=== PATIENT | female | born 1950 | race African-American/Black ===

== ENCOUNTER 2017-03-19 23:52 | Emergency (ER) | payer OTHER ==
[~2017-03-19 23:52] MED LIST: ALBU1AER9 INH; AMLO10TA2 PO; B-COTAB18 PO; CLC100 PO; CMD5 PO; CTP1 PO; GLUCTAB18 PO; LIRA18IN SQ; LISI-461 PO; LSX20 PO; LVNIS40 SQ; METF500T5 PO; METH-446 PO; METO-596 PO; MULT-614 PO; OMEP20CA59 PO; ONDA4TAB46 PO; OXYSR10 PO; POTA20TA16 PO; PRAV10TA39 PO; RXC5 PO; SENNTAB23 PO
[2017-03-19 23:57] VITALS: TEMP 36.4
[2017-03-20] MEDS ORDERED: ONDANSETRON INJ 2 MG/ML 2 ML VIAL IV STA (00:21)
[2017-03-20] MEDS ORDERED: MoRPHine SULFATE 4 MG/ML 1 ML CARP\\VIAL IV STA (00:28)
[2017-03-20] MEDS ORDERED: LOPERAMIDE LIQUID 1MG/7.5ML 120ML BTL PO ONE (00:30)
[2017-03-20 00:33] LABS: URINE APPEARANCE CLOUDY (CLEAR); URINE BILIRUBIN NEG (NEG); URINE COLOR DK YELLOW; URINE EPITHELIAL CELL AUTO >30 /lpf (0-5); URINE NITRITE NEG (NEG); URINE SPECIFIC GRAVITY 1.013 (1.000-1.030); UROBILINOGEN NEG (NEG); ZZUR CULT IF INDIC CLEAN CATCH NO
[2017-03-20 00:35] LABS: MANUAL MICROSCOPIC REQUIRED? NO; REVIEW REQ? NO
[2017-03-20] MEDS ORDERED: HYDR-4383 PO (00:45)
[2017-03-20] MEDS ORDERED: RANI150T2 PO (00:45)
[2017-03-20] MEDS ORDERED: FURO-85 PO (01:30)
[2017-03-20] MEDS ORDERED: WARF5TAB90 PO ×2 (01:30)
[2017-03-20] MEDS ORDERED: CTP1CL PO (01:31)
[2017-03-20] MEDS ORDERED: LSN40 PO (01:31)
[2017-03-20] MEDS ORDERED: MoRPHine SULFATE 4 MG/ML 1 ML CARP\\VIAL IM STA (01:43)
[2017-03-20] MEDS ORDERED: ONDANSETRON HOME PACK 4MG OD TAB PO ONE (01:45)
[2017-03-20] MEDS ORDERED: ONDANSETRON 4MG OD TAB PO ONE (01:45)
--- NOTE | 2017-03-20 01:49 | EMERGENCY ROOM VISIT NOTE ---
History Report prepared by Linda: He Rodrigues Under the Supervision of: Dr. Morgan Rome D.O. First contact with patient: 00:22 Chief Complaint: ABDOMINAL PAIN Stated Complaint: ABDOMINAL PAIN Nursing Triage Summary: Abdominal pain, nausea, diarrhea, cramping starting 2229. Recently switched to Victoza injectable for type II DM. History of Present Illness The patient is a 66 year old female who presents to the Emergency Room with complaints of cramping abdominal pain that began 1 and a half hours ago. She rates her pain moderate in severity. At this time, the patient's pain came on suddenly. She then became nauseated and had 2 episodes of diarrhea. She then became lightheaded. She denies any fevers or any other abnormal symptoms. She notes that she recently changed one of her Diabetes medications to Victoza. Source of History: patient Onset: 1 and a half hours ago Position: other (GI) Symptom Intensity: moderate Quality: cramping Timing: constant Associated Symptoms: + nausea, + diarrhea, No fevers Note: She is currently experiencing lightheadedness. She denies any other abnormal symptoms. Review of Systems See HPI for pertinent positives & negatives. A total of 10 systems reviewed and were otherwise negative. Past Medical & Surgical Medical Problems: (1) Drug abuse (2) Pulmonary embolism Surgical Problems: (1) H/O oophorectomy (2) History of lumbar fusion (3) Hx of appendectomy (4) S/P cholecystectomy (5) S/P TKR (total knee replacement) Family History Hypertension Social History Smoking Status: Never Smoker Smokeless Tobacco Use: No Drug Use: other Marital Status: single Occupation Status: retired Current/Historical Medications Scheduled Amlodipine Besylate (Norvasc), 10 MG PO QPM B-Complex Vitamins (Vitamin B Complex), 1 TAB PO QPM Clonidine Hcl (Catapres), 0.1 MG PO BID Furosemide (Lasix), 20 MG PO BID Liraglutide (Victoza), 1.2 MG SQ QAM Lisinopril (Lisinopril), 40 MG PO DAILY Metoprolol Tartrate (Lopressor), 100 MG PO BID Multiple Vitamins W/ Minerals (Centrum Silver Ultra [place]), 1 TAB PO QPM Omeprazole (Prilosec), 20 MG PO QPM Potassium Ext Rel (Klor-Con), 20 MEQ PO BID Pravastatin Sodium (Pravastatin Sodium), 10 MG PO QPM Ranitidine HCl (Ranitidine HCl), 150 MG PO BID Warfarin Sodium (Coumadin), 1 TAB PO 5XWK Warfarin Sodium (Coumadin), 1.5 TAB PO 2XWK Scheduled PRN Hydrocodone/Acetaminophen ([place] 10/325 Tab), 1 TAB PO TID PRN for Pain Methocarbamol (Robaxin), 750 MG PO Q4H PRN for MUSCLE SPASM Ondansetron Hcl (Zofran), 4 MG PO Q4 PRN for Nausea Sennosides-Docusate Sodium (Stool Softener), 1 TAB PO HS PRN for Constipation Allergies Coded Allergies: Aspirin (Verified Allergy, Mild, SWELLING, 03/20/17) Chocolate (Verified Allergy, Mild, SWELLING, 03/20/17) NUTS (Verified Allergy, Mild, SWELLING, 03/20/17) Yeast (Verified Allergy, Mild, SWELLING, 03/20/17) Acetaminophen (Verified Allergy, Unknown, hives, 03/20/17) Can tolerate Lortab Uncoded Allergies: DUST/GRASS (Allergy, Mild, SWELLING, 12/29/13) FRESH FRUIT (Allergy, Mild, SWELLING, 12/29/13) DAYANNA-AID (Allergy, Mild, SWELLING, 12/29/13) Physical Exam Vital Signs Date Time Temp Pulse Resp B/P (MAP) Pulse Ox O2 Delivery O2 Flow Rate FiO2 03/20/17 00:23 74 03/19/17 23:57 36.4 Room Air Physical Exam CONSTITUTIONAL/VITAL SIGNS: Reviewed / noted above. GENERAL: Non-toxic in appearance. INTEGUMENTARY: Warm, dry, and [place]. HEAD: Normocephalic. EYES: without scleral icterus or trauma. ENT/OROPHARYNX: clear and moist. LYMPHADENOPATHY/NECK: Is supple without lymphadenopathy or meningismus. RESPIRATORY: Lungs clear and equal. CARDIOVASCULAR: Regular rate and rhythm. GI/ABDOMEN: Soft and nontender. No organomegaly or pulsatile mass. No rebound or guarding. Normal bowel sounds. EXTREMITIES: Warm and well perfused. BACK: No CVA tenderness. NEUROLOGICAL: Intact without focal deficits. PSYCHIATRIC: normal affect. MUSCULOSKELETAL: Normally developed with good muscle tone. Medical Decision & Procedures Laboratory Results Test 03/20/17 00:10 03/20/17 00:21 Urine Color DK YELLOW Urine Appearance CLOUDY (CLEAR) Urine pH 5.0 (4.5-7.5) Urine Specific [place] 1.013 (1.000-1.030) Urine Protein NEG (NEG) Urine Glucose (UA) 1+ (NEG) Urine Ketones NEG (NEG) Urine Occult Blood NEG (NEG) Urine Nitrite NEG (NEG) Urine Bilirubin NEG (NEG) Urine Urobilinogen NEG (NEG) Urine Leukocyte Esterase SMALL (NEG) Urine WBC (Auto) 5-10 /hpf (0-5) Urine RBC (Auto) 0-4 /hpf (0-4) Urine Hyaline Casts (Auto) 1-5 /lpf (0-5) Urine Epithelial Cells (Auto) >30 /lpf (0-5) Urine Bacteria (Auto) NEG (NEG) Laboratory results as stated above per my review. Medications Administered Medications (Trade) Dose Ordered Sig/Aimee Route Start Time Stop Time Status Last Admin Dose Admin Loperamide HCl (Imodium A-D Liquid) 2 mg ONE ONCE PO 03/20/17 00:30 03/20/17 00:31 DC 03/20/17 00:45 2 MG ECG Indication: abdominal pain Rate (beats per minute): 70 Rhythm: normal sinus Findings: no acute ischemic change, no ectopy ED Course 0022: Previous medical records were reviewed. The patient was evaluated in room B6. A complete history and physical examination was performed. 0030: Ordered Loperamide HCl 2 mg PO 0140: I was notified that an IV could not be established in the patient. The lab technicians, nursing staff, and EMS staff all tried, but no one succeeded. 0143: Ordered Morphine Sulfate 4 mg IM 0145: Ordered Ondansetron HCl 1 homepack PO, Zofran Odt 4 mg PO 0153: On reevaluation, the patient is resting. I discussed the results and findings with the patient. She verbalized agreement of the treatment plan. She was discharged home. Medical Decision Differential diagnosis: Etiologies such as gastroenteritis, food borne illness, infections, appendicitis , diverticulitis, inflammatory bowel disease, obstruction, GI bleed, biliary pathology, as well as others were entertained. Medication Reconciliation: I attest that I have personally reviewed the patient' s current medication list. Patient was found to have a slightly elevated blood pressure due to circumstances. I do not believe that the patient requires hypertension monitoring. This is a 66-year-old female who presents to the ED with a chief complaint of abdominal cramps, nausea, diarrhea. Her symptoms started around 11 PM tonight. It was rather sudden in onset. She feels it is related to a new diabetic medication she is recently been started on. The patient has an unremarkable exam. Due to difficulty with IV access and drawing labs, the patient was treated with Zofran ODT, morphine IM and Imodium by mouth. She was given Zofran ODT. She will contact her doctor in the morning. Impression Primary Impression: Diarrhea Scribe Attestation The scribe's documentation has been prepared under my direction and personally reviewed by me in its entirety. I confirm that the note above accurately reflects all work, treatment, procedures, and medical decision making performed by me. Departure Information Dispostion Home / Self-Care Referrals Kristie Dodson M.D. (PCP) Forms HOME CARE DOCUMENTATION FORM, IMPORTANT VISIT INFORMATION, Work Instructions Return To Work: 1 day Patient Instructions My [facility] Additional Instructions Contact your doctor in the morning. Return for any concerns or worsening.
[2017-03-20 02:25] VITALS: BP 140/73; PULSE 80; O2SAT 93
== END 2017-03-20 02:27 | disposition home or self-care (01) ==
LOC: EDBD 23:52 → C.EDB 23:55
DX: R19.7 Diarrhea, unspecified (principal); Z86.711 Personal history of pulmonary embolism; Z90.49 Acquired absence of other specified parts of digestive tract; Z98.1 Arthrodesis status; Z96.659 Presence of unspecified artificial knee joint; Z79.01 Long term (current) use of anticoagulants; Z79.899 Other long term (current) drug therapy; Z88.6 Allergy status to analgesic agent; Z91.018 Allergy to other foods; Z82.49 Family history of ischemic heart disease and other diseases of the circulatory system

== ENCOUNTER 2018-01-28 10:57 | Emergency (ER) | payer OTHER ==
[~2018-01-28 10:57] MED LIST changes: -ALBU1AER9 INH; -CLC100 PO; -CMD5 PO; -CTP1 PO; +CTP1CL PO; +FURO-85 PO; -GLUCTAB18 PO; +HYDR-4383 PO; -LISI-461 PO; +LSN40 PO; -LSX20 PO; -LVNIS40 SQ; -METF500T5 PO; -OXYSR10 PO; +POTA-639 PO; -POTA20TA16 PO; +RANI150T2 PO; -RXC5 PO; +WARF5TAB90 PO
[2018-01-28 11:00] VITALS: TEMP 36.8
[2018-01-28] MEDS ORDERED: HYDROmorphone INJ 1 MG/ML SYR IV STA (11:24)
[2018-01-28] MEDS ORDERED: SODIUM CHLORIDE 0.9% 1000ML 1,000 ML IV STA (11:24)
[2018-01-28] MEDS ORDERED: ONDANSETRON INJ 2 MG/ML 2 ML VIAL IV STA (11:24)
[2018-01-28] MEDS ORDERED: OPTIRAY 320 IV PRN (11:30)
[2018-01-28] MEDS ORDERED: PRLSR20 PO (11:31)
[2018-01-28] MEDS ORDERED: LIRA18IN SQ (11:31)
[2018-01-28] MEDS ORDERED: EMPA1TAB3 PO (11:31)
[2018-01-28] MEDS ORDERED: RANI150T3 PO (11:32)
[2018-01-28 12:37] LABS: EOS % 0.2 %; EOS ABS # 0.02 K/uL (0-0.5); HEMATOCRIT 48.3 % (37-47); HEMOGLOBIN 16.7 g/dL (12.0-16.0); IG# 0.02 K/uL (0.00-0.02); LYMPH % 3.4 %; LYMPH ABS # 0.31 K/uL (1.2-3.4); MEAN CELL VOLUME 91.1 fL (80-100); MEAN CORPUSCULAR HEMOGLOBIN 31.5 pg (25-34); MEAN CORPUSCULAR HGB CONC 34.6 g/dl (32-36); MEAN PLATELET VOLUME 10.6 fL (7.4-10.4); MONO % 2.3 %; MONO ABS # 0.21 K/uL (0.11-0.59); NEUT % 93.9 %; NEUT ABS # 8.61 K/uL (1.4-6.5); PLATELET COUNT 172 K/uL (130-400); RED CELL DISTRIBUTION WIDTH CV 12.3 % (11.5-14.5); RED CELL DISTRIBUTION WIDTH SD 40.8 fL (36.4-46.3); WHITE BLOOD COUNT 9.17 K/uL (4.8-10.8)
[2018-01-28 12:46] LABS: INR 2.6 (0.9-1.1)
[2018-01-28 13:07] LABS: BLOOD UREA NITROGEN 19 mg/dl (7-18); CREATININE 1.12 mg/dl (0.60-1.20); GLUCOSE 266 mg/dl (70-99)
[2018-01-28 13:08] LABS: ALBUMIN 3.7 gm/dl (3.4-5.0); ALT/SGPT 38 U/L (12-78); AST/SGOT 39 U/L (15-37); CALCIUM 9.3 mg/dl (8.5-10.1); CARBON DIOXIDE 25 mmol/L (21-32); LIPASE 193 U/L (73-393); SODIUM 139 mmol/L (136-145)
[2018-01-28 13:10] LABS: ALKALINE PHOSPHATASE 52 U/L (45-117); TOTAL PROTEIN 8.5 gm/dl (6.4-8.2)
--- NOTE | 2018-01-28 13:59 | DIAGNOSTIC IMAGING REPORT ---
CT ABD/PELVIS IV CONTRAST ONLY CLINICAL HISTORY: Diffuse abdominal pain. Vomiting, diarrhea. COMPARISON STUDY: None. TECHNIQUE: Following the IV administration of 93 mL of Optiray-320, CT scan of the abdomen and pelvis was performed from the lung bases to the proximal femurs. Images are reviewed in the axial, sagittal, and coronal planes. IV contrast was administered without complication. A dose lowering technique was utilized adhering to the principles of ALARA. CT DOSE: 1634.82 mGy.cm FINDINGS: Lower chest: There are minor dependent atelectatic changes present. Liver: The contrast-enhanced liver is normal in size, contour, and attenuation. There is no intrahepatic biliary ductal dilatation. The hepatic veins and portal veins are patent. Gallbladder: Surgically absent. The common bile duct measures 10 mm. Spleen: Normal in size and attenuation. Pancreas: Unremarkable. Adrenal glands: Unremarkable. Kidneys: The kidneys have a lobular contour. There is a 19 mm left renal cyst. There is an 8 mm left renal cyst. No solid renal masses are visualized. There is no hydronephrosis. Bowel: There are no transition zones indicate bowel obstruction. By history the appendix is absent. There is no acute diverticulitis. There are scattered colonic diverticula present. Peritoneum: There is no intraperitoneal free air or abdominal ascites. Vasculature: The abdominal aorta is normal in course and caliber. Adenopathy: None. Pelvic viscera: There is a calcified uterine fibroid. Skeletal structures: Postsurgical changes are present within the lumbar spine. IMPRESSION: 1. No acute intra-abdominal or pelvic findings 2. No evidence of bowel obstruction. No evidence of free air 3. Surgically absent gallbladder. Mildly dilated common bile duct. 4. Calcified uterine fibroids 5. Diverticulosis. No evidence of acute diverticulitis. Electronically signed by: Armando De Dios M.D. 01/28/2018 1:57 PM Dictated Date/Time: 01/28/2018 1:53 PM
[2018-01-28] MEDS ORDERED: DICY10CA55 PO (14:08)
[2018-01-28] MEDS ORDERED: ONDA4TAB10 SL (14:08)
--- NOTE | 2018-01-28 14:12 | EMERGENCY ROOM VISIT NOTE ---
History Report prepared by Linda: Edin Oneil Under the Supervision of: Dr. Morgan Fuentes M.D. First contact with patient: 11:17 Chief Complaint: VOMITING Stated Complaint: VOMITING, DIAHRREA History of Present Illness The patient is a 67 year old female who presents to the Emergency Room with complaints of constant diffuse abdominal pain beginning 6 hours ago. She also complains of vomiting and diarrhea. The patient rates her pain as a 10/10 in severity. She states that her pain is one of the worst she has ever felt. She states that she ate a normal breakfast this morning. The patient denies recent consumption of abnormal foods. She is on Coumadin for previous PE. Source of History: patient Onset: 6 hours ago Position: abdomen Symptom Intensity: 10/10 Timing: constant Associated Symptoms: + vomiting, + diarrhea Review of Systems See HPI for pertinent positives & negatives. A total of 10 systems reviewed and were otherwise negative. Past Medical & Surgical Medical Problems: (1) Drug abuse (2) HLD (hyperlipidemia) (3) HTN (hypertension) (4) Pulmonary embolism Surgical Problems: (1) H/O oophorectomy (2) History of lumbar fusion (3) Hx of appendectomy (4) S/P cholecystectomy (5) S/P TKR (total knee replacement) Family History Hypertension Social History Smoking Status: Never Smoker Drug Use: other Marital Status: single Occupation Status: retired Current/Historical Medications Scheduled Amlodipine Besylate (Norvasc), 10 MG PO QPM B-Complex Vitamins (Vitamin B Complex), 1 TAB PO QPM Clonidine Hcl (Catapres), 0.2 MG PO BID Dicyclomine Hcl (Bentyl), 10 MG PO Q6 Empagliflozin (Jardiance), 25 MG PO DAILY Furosemide (Lasix), 20 MG PO DAILY Liraglutide (Victoza), 3 ML SQ DAILY Lisinopril (Lisinopril), 40 MG PO DAILY Metoprolol Tartrate (Lopressor), 100 MG PO BID Multiple Vitamins W/ Minerals (Centrum Silver Ultra [place]), 1 TAB PO QPM Omeprazole (Prilosec), 20 MG PO QPM Ondasetron Odt (Zofran Odt), 4 MG SL Q6H Potassium Ext Rel (Klor-Con), 20 MEQ PO BID Pravastatin Sodium (Pravastatin Sodium), 10 MG PO QPM Ranitidine Hcl (Zantac), 150 MG PO BID Warfarin Sodium (Coumadin), 7.5 MG PO 4XWK Warfarin Sodium (Coumadin), 5 MG PO 3XWK Scheduled PRN Hydrocodone/Acetaminophen ([place] 10/325 Tab), 1 TAB PO TID PRN for Pain Methocarbamol (Robaxin), 750 MG PO Q4H PRN for MUSCLE SPASM Ondansetron Hcl (Zofran), 4 MG PO Q4 PRN for Nausea Allergies Coded Allergies: Aspirin (Verified Allergy, Mild, SWELLING, 01/28/18) Chocolate (Verified Allergy, Mild, SWELLING, 01/28/18) NUTS (Verified Allergy, Mild, SWELLING, 01/28/18) Yeast (Verified Allergy, Mild, SWELLING, 01/28/18) Acetaminophen (Verified Allergy, Unknown, hives, 01/28/18) Can tolerate Lortab Uncoded Allergies: DUST/GRASS (Allergy, Mild, SWELLING, 12/29/13) FRESH FRUIT (Allergy, Mild, SWELLING, 12/29/13) DAYANNA-AID (Allergy, Mild, SWELLING, 12/29/13) Physical Exam Vital Signs Date Time Temp Pulse Resp B/P (MAP) Pulse Ox O2 Delivery O2 Flow Rate FiO2 01/28/18 12:23 102 01/28/18 11:00 36.8 122 20 131/81 96 Room Air Physical Exam GENERAL: Awake, alert, well-appearing, in no acute distress HENT: Normocephalic, atraumatic. Oropharynx unremarkable. EYES: Normal conjunctiva. Sclera non-icteric. NECK: Supple. No nuchal rigidity. FROM. No JVD. RESPIRATORY: Clear to auscultation. CARDIAC: Regular rate, normal rhythm. Extremities warm and well perfused. Pulses equal. ABDOMEN: Soft, non-distended. No tenderness to palpation. No rebound or guarding. No masses. RECTAL: Deferred. MUSCULOSKELETAL: Chest examination reveals no tenderness. The back is symmetrical on inspection without obvious abnormality. There is no CVA tenderness to palpation. No joint edema. LOWER EXTREMITIES: Calves are equal size bilaterally and non-tender. No edema. No discoloration. NEURO: Normal sensorium. No sensory or motor deficits noted. SKIN: No rash or jaundice noted. Medical Decision & Procedures ER Provider Diagnostic Interpretation: Radiology results as stated below per my review and radiologist interpretation: CT ABD/PELVIS IV CONTRAST ONLY FINDINGS: Lower chest: There are minor dependent atelectatic changes present. Liver: The contrast-enhanced liver is normal in size, contour, and attenuation. There is no intrahepatic biliary ductal dilatation. The hepatic veins and portal veins are patent. Gallbladder: Surgically absent. The common bile duct measures 10 mm. Spleen: Normal in size and attenuation. Pancreas: Unremarkable. Adrenal glands: Unremarkable. Kidneys: The kidneys have a lobular contour. There is a 19 mm left renal cyst. There is an 8 mm left renal cyst. No solid renal masses are visualized. There is no hydronephrosis. Bowel: There are no transition zones indicate bowel obstruction. By history the appendix is absent. There is no acute diverticulitis. There are scattered colonic diverticula present. Peritoneum: There is no intraperitoneal free air or abdominal ascites. Vasculature: The abdominal aorta is normal in course and caliber. Adenopathy: None. Pelvic viscera: There is a calcified uterine fibroid. Skeletal structures: Postsurgical changes are present within the lumbar spine. IMPRESSION: 1. No acute intra-abdominal or pelvic findings 2. No evidence of bowel obstruction. No evidence of free air 3. Surgically absent gallbladder. Mildly dilated common bile duct. 4. Calcified uterine fibroids 5. Diverticulosis. No evidence of acute diverticulitis. Electronically signed by: Armando De Dios M.D. 01/28/2018 1:57 PM Laboratory Results 01/28/18 12:18 Red Blood Count 5.30, Mean Corpuscular Volume 91.1, Mean Corpuscular Hemoglobin 31.5, Mean Corpuscular Hemoglobin Concent 34.6, Mean Platelet Volume 10.6, Neutrophils (%) (Auto) 93.9, Lymphocytes (%) (Auto) 3.4, Monocytes (%) (Auto) 2.3, Eosinophils (%) (Auto) 0.2, Basophils (%) (Auto) 0.0, Neutrophils # (Auto) 8.61, Lymphocytes # (Auto) 0.31, Monocytes # (Auto) 0.21, Eosinophils # (Auto) 0.02, Basophils # (Auto) 0.00 01/28/18 12:18 Test 01/28/18 12:18 White Blood Count 9.17 K/uL (4.8-10.8) Red Blood Count 5.30 M/uL (4.2-5.4) Hemoglobin 16.7 g/dL (12.0-16.0) Hematocrit 48.3 % (37-47) Mean Corpuscular Volume 91.1 fL (80-100) Mean Corpuscular Hemoglobin 31.5 pg (25-34) Mean Corpuscular Hemoglobin Concent 34.6 g/dl (32-36) Platelet Count 172 K/uL (130-400) Mean Platelet Volume 10.6 fL (7.4-10.4) Neutrophils (%) (Auto) 93.9 % Lymphocytes (%) (Auto) 3.4 % Monocytes (%) (Auto) 2.3 % Eosinophils (%) (Auto) 0.2 % Basophils (%) (Auto) 0.0 % Neutrophils # (Auto) 8.61 K/uL (1.4-6.5) Lymphocytes # (Auto) 0.31 K/uL (1.2-3.4) Monocytes # (Auto) 0.21 K/uL (0.11-0.59) Eosinophils # (Auto) 0.02 K/uL (0-0.5) Basophils # (Auto) 0.00 K/uL (0-0.2) RDW Standard Deviation 40.8 fL (36.4-46.3) RDW Coefficient of Variation 12.3 % (11.5-14.5) Immature Granulocyte % (Auto) 0.2 % Immature Granulocyte # (Auto) 0.02 K/uL (0.00-0.02) Prothrombin Time 26.5 SECONDS (9.0-12.0) Prothromb Time International Ratio 2.6 (0.9-1.1) Anion Gap 10.0 mmol/L (3-11) Estimated GFR () 58.9 Estimated GFR (Non- 50.8 BUN/Creatinine Ratio 17.2 (10-20) Calcium Level 9.3 mg/dl (8.5-10.1) Total Bilirubin 0.8 mg/dl (0.2-1) Direct Bilirubin 0.2 mg/dl (0-0.2) Aspartate Amino Transf (AST/SGOT) 39 U/L (15-37) Alanine Aminotransferase (ALT/SGPT) 38 U/L (12-78) Alkaline Phosphatase 52 U/L (45-117) Total Protein 8.5 gm/dl (6.4-8.2) Albumin 3.7 gm/dl (3.4-5.0) Lipase 193 U/L (73-393) Labs reviewed by ED physician. Medications Administered Medications (Trade) Dose Ordered Sig/Aimee Route Start Time Stop Time Status Last Admin Dose Admin Sodium Chloride 1,000 ml @ 999 mls/hr Q1H1M STAT IV 01/28/18 11:24 01/28/18 12:24 DC 01/28/18 12:04 999 MLS/HR Hydromorphone HCl (Dilaudid Inj) 1 mg NOW STAT IV 01/28/18 11:24 01/28/18 11:26 DC 01/28/18 12:04 1 MG Ondansetron HCl (Zofran Inj) 4 mg NOW STAT IV 01/28/18 11:24 01/28/18 11:26 DC 01/28/18 12:05 4 MG ED Course 1119: Past medical records reviewed. The patient was evaluated in room C5. A complete history and physical examination was performed. 1124: Ordered Zofran Inj 4 mg IV, Dilaudid Inj 1 mg IV, Sodium Chloride 1000 ml @ 999 mls/hr IV. 1410: Upon reexamination the patient is resting comfortably. I discussed results and treatment plan with the patient. She verbalizes agreement and understanding. The patient is ready for discharge. Medical Decision Differential diagnosis: Etiologies such as appendicitis, diverticulitis, PUD, biliary pathology, UTI, pancreatitis, obstruction, mesenteric ischemia, aortic pathology, infections, inflammatory bowel disease, renal colic, as well as others were entertained. This is a 67-year-old female that presents the emergency department complaining of vague abdominal pain and symptoms. The patient does not have an elevation in her white blood cell count, her glucose is elevated she has a normal renal profile normal liver profile normal lipase. Serial abdominal examinations were performed on the patient in the emergency department and at no time did the patient exhibited a surgical abdomen. Using shared medical decision making with the patient the patient opted to have a CAT scan of the abdomen and pelvis as she felt she was tender. She was given Dilaudid as well as Reglan for the pain. Repeat examination revealed much improvement the patient's symptoms. I do feel that the patient is well enough to be discharged home as there does not appear to be an acute process on the patient's CAT scan. I did discuss with the patient that her sugar was elevated. She is going to recheck it at home. She will return if she develops fevers or severe abdominal pain. Patient was in agreement with the treatment plan. Medication Reconcilliation Current Medication List: was personally reviewed by me Blood Pressure Screening Patient's blood pressure: Elevated blood pressure Blood pressure disposition: Elevated BP felt to be situational Impression Primary Impression: Gastroenteritis Scribe Attestation The scribe's documentation has been prepared under my direction and personally reviewed by me in its entirety. I confirm that the note above accurately reflects all work, treatment, procedures, and medical decision making performed by me. Departure Information Dispostion Home / Self-Care Prescriptions Dicyclomine Hcl (BENTYL) 10 Mg Cap 10 MG PO Q6 for 10 Days, #40 CAP Prov: Morgan Fuentes MD 01/28/18 Ondasetron Odt (ZOFRAN ODT) 4 Mg Tab 4 MG SL Q6H for Nausea, #6 TAB Prov: Morgan Fuentes MD 01/28/18 Referrals Kristie Dodson M.D. (PCP) Forms HOME CARE DOCUMENTATION FORM, IMPORTANT VISIT INFORMATION Patient Instructions Diet Clear Liquid Dc, ED Gastroenteritis Report Pend, My [facility] Additional Instructions Clear liquid diet next 48 hours Culture results are usually available in approx 48 hours You have been examined and treated today on an emergency basis only. This is not a substitute for, or an effort to provide, complete comprehensive medical care. It is impossible to recognize and treat all injuries or illnesses in a single emergency department visit. It is therefore important that you follow up closely with [facility]. Call as soon as possible for an appointment. Thank you for your time and consideration. I look forward to speaking with you again soon. Please don't hesitate to call us if you have any questions.
[2018-01-28 14:44] VITALS: BP 116/95; PULSE 101; O2SAT 95
== END 2018-01-28 14:47 | disposition home or self-care (01) ==
LOC: C.EDB 10:59 → C.EDC 14:47
DX: K52.9 Noninfective gastroenteritis and colitis, unspecified (principal); R73.9 Hyperglycemia, unspecified; E78.5 Hyperlipidemia, unspecified; I10 Essential (primary) hypertension; Z86.711 Personal history of pulmonary embolism; Z79.01 Long term (current) use of anticoagulants; Z79.899 Other long term (current) drug therapy; Z90.722 Acquired absence of ovaries, bilateral; Z90.89 Acquired absence of other organs; Z90.49 Acquired absence of other specified parts of digestive tract; Z88.6 Allergy status to analgesic agent; Z91.018 Allergy to other foods; Z91.048 Other nonmedicinal substance allergy status

== ENCOUNTER 2020-08-31 13:07 | Inpatient (IN) ==
[2020-08-31] MEDS ORDERED: VANCOMYCIN HCL 2,500 MG in SODIUM CHLORIDE 0.9% 500 ML IV ONE (13:52)
[2020-08-31] MEDS ORDERED: cefTRIAXone SODIUM 1,000 MG/50 ML BAG IV STA (13:52)
[2020-08-31] MEDS ORDERED: VANCOMYCIN CONSULT ACTIVE PRN (13:52)
--- NOTE | 2020-08-31 13:58 | Emergency Department Note ---
Impression & Plan Cellulitis ED Provider Note NAME: AMPARO DUMONT AGE: 69 SEX: F : 1950 ARRIVES VIA: Walk-In INFORMANT: Patient, ED PROVIDER(S): Shaka Talbot DO CHIEF COMPLAINT: Lower extremity pain HPI: The patient is a 69-year-old female who presented to the emergency department with left lower extremity pain and swelling. The patient was seen in our facility on August 14 of this year for similar complaints. At that time she was started on Rocephin and then sent home on Keflex and Bactrim. She states that the symptoms started to improve but when she followed up with her family doctor after a 10-day treatment she still had some swelling and pain of the left leg. She was seen by her primary care physician and has been on multiple antibiotics including a continued course of oral antibiotics but also she has been given doses of IM Rocephin recently. She saw her family doctor today in follow-up and he was very concerned that the symptoms were not improving. For this reason he sent her to the emergency department for admission as well as IV antibiotics and possible further inpatient management. The patient herself states that the pain is mildly improved but she still has significant swelling and redness to the left leg. She denies having any vomiting but does complain of some nausea. She denies having any chest pain or difficulty breathing. The patient does take Coumadin. She denies having any headache or fevers. She has had no recent falls. She has no Covid symptoms including cough or shortness of breath. ROS: See above HPI for pertinent positives & negatives. A total of 10 systems reviewed and were otherwise negative. PAST MEDICAL HISTORY: See Below PAST SURGICAL HISTORY: See Below FAMILY HISTORY: See Below SOCIAL HISTORY: See Below HOME MEDICATIONS: See Below ALLERGIES: See Below VITALS: See Below PHYSICAL EXAMINATION: GENERAL: Patient is awake alert in no acute distress patient is resting comfortably and showing no signs of anxiety EYES: The conjunctivae are clear. The pupils are round and reactive. EARS, NOSE, MOUTH AND THROAT: The nose is without any evidence of any deformity. Mucous membranes are moist. Tongue is midline. NECK: The neck is nontender and supple. RESPIRATORY: Normal respiratory effort is noted there is no evidence of wheezing rhonchi or rales CARDIOVASCULAR: Regular rate and rhythm noted there no murmurs rubs or gallops normal S1 normal S2. GASTROINTESTINAL: The abdomen is soft. Abdomen is nontender. MUSCULOSKELETAL/EXTREMITIES: There is no evidence of gross deformity full range of motion is noted in the hips and shoulders. SKIN: There is circumferential swelling noted of the left lower extremity. This is essentially from the proximal tibia into the left ankle. Skin is warm and dry. Pulses are symmetric in both feet. The overlying skin is warm. NEUROLOGIC: Patient is awake alert and oriented x3. MEDICAL DECISION MAKING: The patient is a 69-year-old female who presented to the emergency department for an evaluation of left lower extremity pain and swelling. The patient was recently diagnosed with cellulitis. She has been on multiple rounds of oral antibiotics and recently has been receiving parenteral antibiotics. Her symptoms continue to worsen. She saw her family doctor today in follow-up and was sent to the emergency department for reevaluation IV antibiotics and possible admission. The patient was treated with IV Rocephin and IV Vanco in the emergency department. I discussed the patient's laboratory and radiographic studies with her. I discussed her case with the on-call [facility] hospitalist group. They have agreed to evaluate the patient in the emergency department for further management and disposition. Triage Nursing notes reviewed. Prior medical records reviewed Vital Signs: reviewed and remarkable for elevated blood pressure. Differential diagnosis: Cellulitis, abscess, MRSA infection, DVT, necrotizing fasciitis, dermatitis, drug eruption, allergic reaction, as well as other pathologies. ER treatment provided: See below Diagnostics interpreted by me: ECG: none Cardiac Monitoring: An order was placed for continuous cardiac monitoring. The monitor shows a rate of 85 bpm with rhythm. Laboratory studies: As stated above and show below. Imaging studies: See below Consultation(s): 1635: I discussed this case with Lowell Shane who is on-call for the [facility] Hospitalist group. Past Med/Surg History Medical History Blood clotting disorder PER PT Cardiac murmur PCP AWARE AND NO FURTHER INVESTIGATION. Chronic back pain POSITIONAL ISSUES EVEN AFTER SURGERY. NUMBNESS AND TINGLING IN LEFT LEG Diabetes mellitus, type 2 GERD (gastroesophageal reflux disease) Hepatitis C HISTORY OF HEP C. PT HAD TREATMENT COURSE AND STATES THAT SHE HAS BEEN CLEARED. HLD (hyperlipidemia) HTN (hypertension) Osteoarthritis Pulmonary embolism PT CURRENTLY ON WARFARIN Sleep apnea CPAP HS Surgical History History of cataract surgery RIGHT History of left cataract surgery 01/02/19: was given 2mg of versed History of lumbar fusion History of total knee replacement LEFT KNEE Hx of appendectomy S/P cholecystectomy S/P TKR (total knee replacement) Family History Mother Family history of diabetes mellitus Brother Family history of diabetes mellitus Social History Smoking Status: Never smoker Second Hand Exposure: No; Hx Alcohol Use: No Hx Substance Use: No Preferred Language: Cymro Communication Ability: Effective Eligibility And Occupancy Interviewer Required: No Beliefs That Will Affect Care: None Current Living Situation: Alone Feels Safe at Home: Yes Assistive Devices: Cane, CPAP, Denture - Upper, Denture - Lower and Glasses Allergies Allergies Allergy/AdvReac Type Severity Reaction Status Date / Time aspirin Allergy Mild SWELLING Verified 08/31/20 15:37 chocolate flavor Allergy Mild SWELLING Verified 08/31/20 15:37 nut - unspecified Allergy Mild SWELLING Verified 08/31/20 15:37 Yeast Allergy Mild SWELLING Verified 08/31/20 15:37 acetaminophen Allergy Unknown hives Verified 08/31/20 15:37 DUST/GRASS Allergy Mild SWELLING Uncoded 08/31/20 15:37 FRESH FRUIT Allergy Mild SWELLING Uncoded 08/31/20 15:37 DAYANNA-AID Allergy Mild SWELLING Uncoded 08/31/20 15:37 Home Meds Home Medications Medication Instructions Recorded Confirmed Jardiance 25 mg PO QAM 07/18/18 08/31/20 albuterol sulfate 2 puff INHALATION Q6H PRN 07/18/18 08/31/20 amlodipine 10 mg PO HS 07/18/18 08/31/20 hydrocodone-acetaminophen 1 tab PO TID PRN 07/18/18 08/31/20 labetalol 200 mg PO BID 07/18/18 08/31/20 lisinopril 40 mg PO QAM 07/18/18 08/31/20 methocarbamol [Robaxin-750] 750 mg PO BID 07/18/18 08/31/20 multivitamin with minerals 1 tab PO HS 07/18/18 08/31/20 potassium chloride 20 meq PO HS 07/18/18 08/31/20 pravastatin 10 mg PO HS 07/18/18 08/31/20 warfarin 5 mg PO MOWEFR 07/18/18 08/31/20 warfarin 7.5 mg PO SUTUTHSA 07/18/18 08/31/20 glyburide 2.5 mg PO QAM 05/30/19 08/31/20 ondansetron HCl [Zofran] 4 mg PO TID PRN 05/30/19 08/31/20 vitamin B complex 1 cap PO HS 05/30/19 08/31/20 elderberry fruit [Elderberry] 200 mg PO DAILY 08/14/20 08/31/20 furosemide 40 mg PO QAM 08/14/20 08/31/20 glyburide 5 mg PO HS 08/14/20 08/31/20 doxycycline hyclate 100 mg PO BID 08/31/20 08/31/20 sulfamethoxazole-trimethoprim 1 tab PO BID 08/31/20 08/31/20 Results & Data (ED) Vital Signs Vital Signs - 24 hr 08/31/20 13:16 Temperature 36.0 C L Temperature Source Oral Respiratory Rate 19 Respiratory Effort / Characteristics Non-Labored Respiratory Depth Normal Blood Pressure 170/88 H Blood Pressure Mean 115 Pulse Oximetry 98 Oxygen Delivery Method Room Air Sepsis Recent Fever Within 48 Hours No Sepsis New/Unexplained Change in Mental Status No Sepsis Action Taken by Nursing No Action Required Home Medications Current Medication List: was personally reviewed by me Laboratory Data Attestation: I reviewed the patient's lab results. Result diagrams: 08/31/20 15:01 08/31/20 15:01 Lab Results 08/31/20 08/31/20 08/31/20 Range/Units 15:01 15:01 15:01 WBC 6.05 (4.8-10.8) K/uL RBC 3.91 L (4.2-5.4) M/uL Hgb 11.8 L (12.0-16.0) g/dL Hct 37.0 (37-47) % MCV 94.6 (80-100) fL MCH 30.2 (25-34) pg MCHC 31.9 L (32-36) g/dL RDW Std Deviation 41.6 (36.4-46.3) fL RDW Coeff of Kia 12.3 (11.5-14.5) % Plt Count 297 (130-400) K/uL MPV 9.5 (7.4-10.4) fL Immature Gran % (Auto) 0.2 % Neut % (Auto) 65.5 % Lymph % (Auto) 25.8 % [place] % (Auto) 7.6 % Eos % (Auto) 0.7 % Baso % (Auto) 0.2 % Neut # (Auto) 3.97 (1.4-6.5) K/uL Lymph # (Auto) 1.56 (1.2-3.4) K/uL [place] # (Auto) 0.46 (0.11-0.59) K/uL Eos # (Auto) 0.04 (0-0.5) K/uL Baso # (Auto) 0.01 (0-0.2) K/uL Immature Gran # (Auto) 0.01 (0.00-0.02) K/uL ESR 60 H (0-21) mm/hr PT 32.8 H (9.0-12.0) Seconds INR 3.3 H (0.9-1.1) APTT 41.8 H (21.0-31.0) Seconds PTT Ratio 1.5 Sodium (136-145) mmol/L Potassium (3.5-5.1) mmol/L Chloride (98-107) mmol/L Carbon Dioxide (21-32) mmol/L Anion Gap (3-11) BUN (7-18) mg/dl Creatinine (0.6-1.2) mg/dl Est Cr Clr Drug Dosing ml/min Est GFR ( Amer) Est GFR (Non-Af Amer) BUN/Creatinine Ratio (10-20) Glucose (70-99) mg/dl Calcium (8.5-10.1) mg/dl Total Bilirubin (0.2-1) mg/dl AST (15-37) U/L ALT (12-78) U/L Alkaline Phosphatase (45-117) U/L C-Reactive Protein (0-0.29) mg/dl Total Protein (6.4-8.2) gm/dl Albumin (3.4-5.0) gm/dl Globulin (2.5-4.0) gm/dl Albumin/Globulin Ratio (0.9-2) Procalcitonin (0-0.5) ng/ml SARS-CoV-2 Ag (Rapid) (Negative) 08/31/20 08/31/20 08/31/20 Range/Units 15:01 15:01 Unknown WBC (4.8-10.8) K/uL RBC (4.2-5.4) M/uL Hgb (12.0-16.0) g/dL Hct (37-47) % MCV (80-100) fL MCH (25-34) pg MCHC (32-36) g/dL RDW Std Deviation (36.4-46.3) fL RDW Coeff of Kia (11.5-14.5) % Plt Count (130-400) K/uL MPV (7.4-10.4) fL Immature Gran % (Auto) % Neut % (Auto) % Lymph % (Auto) % [place] % (Auto) % Eos % (Auto) % Baso % (Auto) % Neut # (Auto) (1.4-6.5) K/uL Lymph # (Auto) (1.2-3.4) K/uL [place] # (Auto) (0.11-0.59) K/uL Eos # (Auto) (0-0.5) K/uL Baso # (Auto) (0-0.2) K/uL Immature Gran # (Auto) (0.00-0.02) K/uL ESR (0-21) mm/hr PT (9.0-12.0) Seconds INR (0.9-1.1) APTT (21.0-31.0) Seconds PTT Ratio Sodium 136 (136-145) mmol/L Potassium 4.2 (3.5-5.1) mmol/L Chloride 106 (98-107) mmol/L Carbon Dioxide 24 (21-32) mmol/L Anion Gap 6.0 (3-11) BUN 17 (7-18) mg/dl Creatinine 1.12 (0.6-1.2) mg/dl Est Cr Clr Drug Dosing 62.2 ml/min Est GFR ( Amer) 58.0 Est GFR (Non-Af Amer) 50.1 BUN/Creatinine Ratio 14.8 (10-20) Glucose 240 H (70-99) mg/dl Calcium 9.7 (8.5-10.1) mg/dl Total Bilirubin 0.5 (0.2-1) mg/dl AST 19 (15-37) U/L ALT 24 (12-78) U/L Alkaline Phosphatase 55 (45-117) U/L C-Reactive Protein 3.02 H (0-0.29) mg/dl Total Protein 8.0 (6.4-8.2) gm/dl Albumin 3.1 L (3.4-5.0) gm/dl Globulin 4.9 H (2.5-4.0) gm/dl Albumin/Globulin Ratio 0.6 L (0.9-2) Procalcitonin < 0.05 (0-0.5) ng/ml SARS-CoV-2 Ag (Rapid) Negative (Negative) Administered Medications Discontinued Medications Ceftriaxone Sodium (Rocephin) 1,000 mg in 50 mls @ 100 mls/hr IV NOW STA Stop: 08/31/20 14:21 Last Infusion: 08/31/20 16:10 Dose: 0 mls/hr Documented by: [id number] Admin: 08/31/20 15:24 Dose: 100 mls/hr Documented by: [id number] Vancomycin HCl 2,500 mg/ (Sodium Chloride) 550 mls @ 200 mls/hr IV NOW ONE Stop: 08/31/20 16:36 Last Admin: 08/31/20 16:10 Dose: 200 mls/hr Documented by: [id number] Imaging Data Radiologist's Impression: Patient: AMPARO DUMONT Admit Date: 08/31/20 MR#: [id number] Address1: [address] [place] [address] [address] Acct ID:[id number] Address2: Date: 1950 [facility] Zip: [place] [address] Age: 69 Location: ED Sex: F Room/Bed: Att Phy: Diagnosis: CELLULITIS IN LEFT LEG Janine Phy: Eugene Iverson MD(DENISE) Service Date: 08/31/20 [facility] Phy: Interpreting Phy: Brian Wells MD Admit Phy: Ordering Phy: Shaka Talbot DO cc: ~ LEFT LOWER EXTREMITY VENOUS DOPPLER CLINICAL HISTORY: swelling COMPARISON STUDY: Left lower extremity venous Doppler ultrasound August 14, 2020. TECHNIQUE: Sonography of the deep venous system of the left lower extremity was performed. Compression and augmentation were evaluated. FINDINGS: The left common femoral, superficial femoral and popliteal veins were compressible. Augmentation was normal. Flow was shown within the deep calf vessels. Note is made of several prominent left inguinal lymph nodes that measure up to 3.3 x 1.5 x 2.1 cm. The largest node contains a fatty hilum. This node is probably benign. IMPRESSION: 1. No evidence of deep venous thrombus within the left lower extremity. 2. A few mildly enlarged left inguinal lymph nodes. Although indeterminate, these are probably benign and may be reactive. ACT 112: Negative or not required by law. Electronically signed by: Brian Wells M.D. 08/31/2020 3:57 PM Dictated: 08/31/20 155 Transcribed: 08/31/201554 Blood Pressure Blood Pressure Findings: Elevated blood pressure Blood Pressure Disposition: further management by hospitalist Discharge Plan Visit Data Chief Complaint: Infection Stated Complaint: CELLULITIS IN LEFT LEG ED Provider: Shaka Talbot Discharge Problem: Cellulitis Patient Disposition: Being Evaluated by Hospitalist Condition: Good Forms Stand Alone Forms: [facility] Prescriptions Prescriptions: No Action labetalol 200 mg tablet 200 mg PO BID RF: 0 hydrocodone-acetaminophen 10-325 mg Tablet 1 tab PO TID PRN (Reason: Pain) RF: 0 methocarbamol [Robaxin-750] 750 mg Tablet 750 mg PO BID RF: 0 pravastatin 10 mg Tablet 10 mg PO HS RF: 0 amlodipine 10 mg Tablet 10 mg PO HS RF: 0 warfarin 5 mg Tablet 7.5 mg PO SUTUTHSA RF: 0 warfarin 5 mg Tablet 5 mg PO MOWEFR RF: 0 multivitamin with minerals Tablet 1 tab PO HS RF: 0 lisinopril 40 mg Tablet 40 mg PO QAM RF: 0 potassium chloride 20 mEq Tablet Extended Release 20 meq PO HS RF: 0 Jardiance 25 mg Tablet 25 mg PO QAM RF: 0 albuterol sulfate 90 mcg/actuation HFA aerosol inhaler 2 puff Inhalation Q6H PRN (Reason: sob/wheezing) RF: 0 doxycycline hyclate 100 mg capsule 100 mg PO BID RF: 0 sulfamethoxazole-trimethoprim 800-160 mg tablet 1 tab PO BID RF: 0 glyburide 5 mg Tablet 2.5 mg PO QAM RF: 0 vitamin B complex Capsule 1 cap PO HS RF: 0 ondansetron HCl [Zofran] 4 mg Tablet 4 mg PO TID PRN (Reason: Nausea) RF: 0 furosemide 40 mg tablet 40 mg PO QAM RF: 0 glyburide 5 mg tablet 5 mg PO HS RF: 0 Elderberry 200 mg Capsule 200 mg PO DAILY RF: 0 Referrals Referrals: Eugene Iverson MD [Primary Care Provider] -
[2020-08-31 15:18] LABS: Basophils # (auto) 0.01 K/uL (0-0.2); Basophils % (auto) 0.2 %; Eosinophils # (auto) 0.04 K/uL (0-0.5); Eosinophils % (auto) 0.7 %; Hemoglobin 11.8 g/dL (12.0-16.0); Immature Granulocytes # (auto) 0.01 K/uL (0.00-0.02); Immature Granulocytes % (auto) 0.2 %; Lymphocytes # (auto) 1.56 K/uL (1.2-3.4); Lymphocytes % (auto) 25.8 %; Mean Corpuscular Hemoglobin 30.2 pg (25-34); Mean Corpuscular Hgb Conc 31.9 g/dL (32-36); Mean Corpuscular Volume 94.6 fL (80-100); Mean Platelet Volume 9.5 fL (7.4-10.4); Monocytes # (auto) 0.46 K/uL (0.11-0.59); Monocytes % (auto) 7.6 %; Neutrophils # (auto) 3.97 K/uL (1.4-6.5); Neutrophils % (auto) 65.5 %; Platelet Count 297 K/uL (130-400); RDW Coefficient of Variation 12.3 % (11.5-14.5); RDW Standard Deviation 41.6 fL (36.4-46.3); Red Blood Count 3.91 M/uL (4.2-5.4); White Blood Count 6.05 K/uL (4.8-10.8)
[2020-08-31 15:31] LABS: INR 3.3 (0.9-1.1); Partial Thromboplastin Ratio 1.5; Partial Thromboplastin Time 41.8 Seconds (21.0-31.0); Prothrombin Time 32.8 Seconds (9.0-12.0)
[2020-08-31 15:34] LABS: Albumin Level 3.1 gm/dl (3.4-5.0); BUN Creatinine Ratio 14.8 (10-20); C Reactive Protein 3.02 mg/dl (0-0.29); Calcium 9.7 mg/dl (8.5-10.1); Creatinine Clr Calc Pharmacy 62.2 ml/min; Est GFR (Non-African American) 50.1; Potassium 4.2 mmol/L (3.5-5.1)
[2020-08-31 15:37] LABS: Albumin Globulin Ratio 0.6 (0.9-2); Bilirubin,Total 0.5 mg/dl (0.2-1); Globulin 4.9 gm/dl (2.5-4.0)
--- NOTE | 2020-08-31 15:58 | Ultrasound Report ---
LEFT LOWER EXTREMITY VENOUS DOPPLER CLINICAL HISTORY: swelling COMPARISON STUDY: Left lower extremity venous Doppler ultrasound August 14, 2020. TECHNIQUE: Sonography of the deep venous system of the left lower extremity was performed. Compressi on and augmentation were evaluated. FINDINGS: The left common femoral, superficial femoral and popliteal veins were compressible. Augmen tation was normal. Flow was shown within the deep calf vessels. Note is made of several prominent lef t inguinal lymph nodes that measure up to 3.3 x 1.5 x 2.1 cm. The largest node contains a fatty hilum . This node is probably benign. IMPRESSION: 1. No evidence of deep venous thrombus within the left lower extremity. 2. A few mildly enlarged left inguinal lymph nodes. Although indeterminate, these are probably benign and may be reactive. ACT 112: Negative or not required by law. Electronically signed by: Brian Wells M.D. 08/31/2020 3:57 PM
[2020-08-31] MEDS ORDERED: oxyCODONE HCL IR 5 MG TAB (IMMEDIATE RELEASE) PO STA (17:04)
--- NOTE | 2020-08-31 17:37 | History & Physical Report ---
Date of Service August 31, 2020 Assessment & Plan (1) Cellulitis of left lower extremity: This is a 69yo F with a PMH of DM II, HTN, GERD, CAITLYN, chronic pain syndrome, h/o PE on coumadin who presents with LLE cellulitis. -Cellulitis first diagnosed on 08/14 and has since completed courses of Keflex and part of Bactrim and Doxycycline. Also given 1mg IM rocephin x 2 in clinic setting -Continues to have edema, erythema, warmth and pain of LLE. Afebrile, no leukocytosis, no indication of sepsis. LLE DVT without evidence of DVT -Given Rocephin and vanco in ED. Plan to continue IV Rocephin and Dapto on the floor -Ask a Doc outpatient ID consult resulted today from Dr. Yobany Shane, with recommendation a consistent abx regimen. Also recommended increasing Keflex dose to 500mg QID for a more accurate weight based dose -Consider inpatient ID consult if condition does not improve with IV abx -Continue home [place], tylenol for pain control (2) HTN (hypertension): Continue home amlodipine, labetalol, lisinopril (3) HLD (hyperlipidemia): Continue pravastatin (4) Pulmonary embolism: On long-term coumadin for h/o DVT/PE. INR supratherapeutic at 3.3 today - will hold this evening's dose and recheck in AM (5) Diabetes mellitus, type 2: A1c ordered. -Hold home agents -SSI while in-patient -BSG AC HS (6) Sleep apnea: CPAP HS DVT Ppx: coumadin Code status: FULL PCP: Zayra Dispo: Observation med/tele. Plan to return home once medically stable. Patient seen in collaboration with Dr. Hatfield. Please see addendum. History of Present Illness Chief Complaint: LLE cellulitis Primary Care Provider: Eugene Iverson MD This is a 69yo F with a PMH of DM II, HTN, GERD, CAITLYN, chronic pain syndrome, h/o PE on coumadin who presents with LLE redness and pain. Was seen in [facility] ED in 08/14 with similar complaints diagnosed as LLE cellulitis and was discharged home on Keflex and Bactrim. Symptoms continued and patient saw PCP in follow up on 08/20 and doxycycline was started. Followed up with weekend clinic on 08/28 and 08/29 with 1mg IM Rocephin was given x 2. An Ask-a-Doc infection disease consult was placed by PCP and resulted today with recommendation for lower extremity ultrasound as well as increasing Keflex dose to 500mg QID for a more accurate weight based dose. At PCP's office today, patient's LLE cellulitis was thought to have had modest improvement but with weakness and nausea developing in interim, PCP sent to ED for further evaluation. Patient states swelling in left lower extremity has improved significantly but still experiencing shocklike pain and warmth. Feels fatigued and nauseous but no vomiting. Denies any fever, chills, lightheadedness, headache, chest pain, shortness of breath, nausea, vomiting, abdominal pain, dysuria, diarrhea or constipation. 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 Allergies Allergy/AdvReac Type Severity Reaction Status Date / Time aspirin Allergy Mild SWELLING Verified 08/31/20 15:37 chocolate flavor Allergy Mild SWELLING Verified 08/31/20 15:37 nut - unspecified Allergy Mild SWELLING Verified 08/31/20 15:37 Yeast Allergy Mild SWELLING Verified 08/31/20 15:37 acetaminophen Allergy Unknown hives Verified 08/31/20 20:47 (takes norco at home) DUST/GRASS Allergy Mild SWELLING Uncoded 08/31/20 15:37 FRESH FRUIT Allergy Mild SWELLING Uncoded 08/31/20 15:37 DAYANNA-AID Allergy Mild SWELLING Uncoded 08/31/20 15:37 Home Medications Medication Instructions Recorded Confirmed Type Jardiance 25 mg PO QAM 07/18/18 08/31/20 History albuterol sulfate 2 puff INHALATION Q6H PRN 07/18/18 08/31/20 History amlodipine 10 mg PO HS 07/18/18 08/31/20 History hydrocodone-acetaminophen 1 tab PO TID PRN 07/18/18 08/31/20 History labetalol 200 mg PO BID 07/18/18 08/31/20 History lisinopril 40 mg PO QAM 07/18/18 08/31/20 History methocarbamol [Robaxin-750] 750 mg PO BID PRN 07/18/18 08/31/20 History multivitamin with minerals 1 tab PO HS 07/18/18 08/31/20 History potassium chloride 20 meq PO HS 07/18/18 08/31/20 History pravastatin 10 mg PO HS 07/18/18 08/31/20 History warfarin 5 mg PO MOWEFR 07/18/18 08/31/20 History warfarin 7.5 mg PO SUTUTHSA 07/18/18 08/31/20 History glyburide 2.5 mg PO QAM 05/30/19 08/31/20 History ondansetron HCl [Zofran] 4 mg PO TID PRN 05/30/19 08/31/20 History vitamin B complex 1 cap PO HS 05/30/19 08/31/20 History elderberry fruit [Elderberry] 200 mg PO DAILY 08/14/20 08/31/20 History furosemide 40 mg PO QAM 08/14/20 08/31/20 History glyburide 5 mg PO HS 08/14/20 08/31/20 History doxycycline hyclate 100 mg PO BID 08/31/20 08/31/20 History sulfamethoxazole-trimethoprim 1 tab PO BID 08/31/20 08/31/20 History Past Med/Surg History Medical History (Updated 08/31/20 @ 20:25 by Bettye Shane PA-C) Blood clotting disorder PER PT Cardiac murmur PCP AWARE AND NO FURTHER INVESTIGATION. Chronic back pain POSITIONAL ISSUES EVEN AFTER SURGERY. NUMBNESS AND TINGLING IN LEFT LEG Colon polyp Diabetes mellitus, type 2 GERD (gastroesophageal reflux disease) Hepatitis C HISTORY OF HEP C. PT HAD TREATMENT COURSE AND STATES THAT SHE HAS BEEN CLEARED. 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 HLD (hyperlipidemia) HTN (hypertension) Osteoarthritis Pulmonary embolism PT CURRENTLY ON WARFARIN Sleep apnea CPAP HS Surgical History History of cataract surgery RIGHT History of left cataract surgery 01/02/19: was given 2mg of versed History of lumbar fusion History of total knee replacement LEFT KNEE Hx of appendectomy S/P cholecystectomy S/P TKR (total knee replacement) Family History Mother Family history of diabetes mellitus Brother Family history of diabetes mellitus Social History Smoking Status: Never smoker Second Hand Exposure: No; Do You Dip or Chew Tobacco: No; Tobacco Cessation Education Requested by Patient: No Hx Alcohol Use: No Hx Substance Use: No Preferred Language: Malian Communication Ability: Effective Metal Technician Required: No Beliefs That Will Affect Care: None Current Living Situation: Alone Other Information That Helps Us Care for You: No Feels Safe at Home: Yes Safety Concerns: Feels Safe At This Time Assistive Devices: Cane Review of Systems Review of Systems: At least ten systems reviewed and negative except as noted in the HPI. Physical Exam Physical Exam: General Appearance: WD/WN, vitals as above, NAD, sitting up in bed, pleasant, conversing easily, obese Head: normocephalic, atraumatic Eyes: normal inspection, PERRL, conjunctivae normal, anicteric sclerae ENT: external ear and nose normal, oropharynx normal Neck: normal visual inspection, trachea midline, no thyromegaly Respiratory: normal respiratory effort, lungs clear to auscultation, no wheeze, rales, rhonchi. No accessory muscle use Cardiovascular: regular rate, rhythm, no murmur, normal peripheral pulses, no BLE edema. Vessels: no JVD Chest: normal inspection of chest Abdomen/GI: normal bowel sounds, soft, nontender, no hepatosplenomegaly Extremities/Musculoskeletal: + LLE with erythema and warmth from ankle to proximal tibia, some edema. No open wounds or drainage. Pulses intact, normal ROM Neurologic: PERRL, EOMI, accommodation nl, no face palsy, no dysarthria, CN's II-XI intact bilaterally and moves all extremities Psychiatric: A+Ox3, euthymic affect Skin: no rashes, normal color, warm/dry Results & Data [facility] Vital Signs (Past 12 Hours) Vital Signs Temp Resp BP Pulse Ox 08/31/20 13:16 36.0 C L 19 170/88 H 98 Laboratory Results Short CBC 08/31/20 Range/Units 15:01 WBC 6.05 (4.8-10.8) K/uL Hgb 11.8 L (12.0-16.0) g/dL Hct 37.0 (37-47) % Plt Count 297 (130-400) K/uL BMP 08/31/20 15:01 Sodium 136 Potassium 4.2 Chloride 106 Carbon Dioxide 24 BUN 17 Creatinine 1.12 Glucose 240 H Calcium 9.7 Liver Function 08/31/20 Range/Units 15:01 Total Bilirubin 0.5 (0.2-1) mg/dl AST 19 (15-37) U/L ALT 24 (12-78) U/L Alkaline Phosphatase 55 (45-117) U/L Albumin 3.1 L (3.4-5.0) gm/dl Diagnostic Findings Venous doppler study: IMPRESSION: 1. No evidence of deep venous thrombus within the left lower extremity. 2. A few mildly enlarged left inguinal lymph nodes. Although indeterminate, these are probably benign and may be reactive. Code Status & VTE Plan VTE Prophylaxis Plan VTE Prophylaxis will be ordered: Yes Supervising Physician Co-Signing Physician Notes Pt seen and examined by me, care coordinated with Btetye Shane PA-C, pls refer to her note above for further detail. Pt is a 69yo F with DM II, HTN, GERD, CAITLYN, chronic pain syndrome, h/o PE on coumadin who presents with LLE redness and pain. Pt has been treated for LLE cellulits since late July with initial improvement of symptoms, especially edema but now erythema has worsened. Outpt infection disease consult was placed by PCP and resulted today with recommendation for lower extremity ultrasound as well as increasing Keflex dose to 500mg QID for a more accurate weight based dose. At PCP's office today, patient's LLE cellulitis was thought to have had modest improvement but with weakness and nausea developing in interim, PCP sent to ED for further evaluation. LLE dopler was obtained and there was no LLE DVT, a few mildly enlarged inguinal lymph nodes were noted likely reactive. She was provided with IV Abx in the ED, received vancomycin and ceftriaxone. Currently pt is laying in bed, in NAD. She is alert and oriented x3 and answering questions appropriately. Heart sound regular, lung sounds clear to auscultation. Abdomen soft, obese, nontender, + bowel sounds. There is no significant edema of LLE but there is erythema and warmth, some tenderness to touch as well. Per pt pictures on pt's phone, edema has improved significantly, also erythema improved on 08/25, however now pain and erythema worsened again. Will continue IV Abx for now, daptomycin and ceftriaxone. plan to likely dc on PO keflex 500 mg QID as per outpt ID. However if pt's condition does not improve, plan to consult ID while inpt. Monica Hatfield MD
[2020-08-31] MEDS ORDERED: DEXTROSE 50% 50 ML SYRINGE IV PRN (19:51)
[2020-08-31] MEDS ORDERED: CARBOHYDRATES FOR HYPOGLYCEMIA PO PRN (19:51)
[2020-08-31] MEDS ORDERED: GLUCOSE 40% GEL 15 GM TUBE PO PRN (19:51)
[2020-08-31] MEDS ORDERED: GLUCAGON FOR INJ 1 MG VIAL SQ PRN (19:51)
[2020-08-31] MEDS ORDERED: ALBUTEROL HFA 8 GM INHALER INH PRN (19:51)
[2020-08-31] MEDS ORDERED: POLYETHYLENE (MIRALAX) 17 GM PACK PO PRN (19:51)
[2020-08-31] MEDS ORDERED: GLUCOSE 10 TABS/TUBE PO PRN (19:51)
[2020-08-31] MEDS: HYDROcodone/ACETAMINOPHEN 10/325 TAB PO PRN (20:52)
[2020-08-31] MEDS: POTASSIUM CHLORIDE CRTAB 20 MEQ TABCR PO SCH (20:52)
[2020-08-31] MEDS: PRAVASTATIN SOD 10 MG TAB PO SCH (20:53)
[2020-08-31] MEDS: LABETALOL HCL 200 MG TAB PO SCH (20:53)
[2020-08-31] MEDS: VITAMIN B COMPLEX TAB PO SCH (20:54)
[2020-08-31] MEDS: MULTIVITAMIN TAB PO SCH (20:54)
[2020-08-31] MEDS: amLODIPine BESYLATE 5 MG TAB PO SCH (20:54)
[2020-08-31] MEDS: INSULIN ASPART 100 UNITS/ML 3 ML PEN SC SCH (20:55)
[2020-08-31] MEDS: DAPTOmycin 350 MG in SYRINGE 0 ML IV SCH (21:52)
[2020-08-31] MEDS: METHOCARBAMOL 750 MG TABLET PO PRN (21:52)
[2020-09-01] MEDS: HYDROcodone/ACETAMINOPHEN 10/325 TAB PO PRN ×3 (05:57→20:00)
[2020-09-01] MEDS: METHOCARBAMOL 750 MG TABLET PO PRN ×2 (05:58→22:16)
[2020-09-01 06:10] LABS: Hematocrit (blood only) 37.6 % (37-47); Mean Corpuscular Hemoglobin 30.4 pg (25-34); Mean Corpuscular Hgb Conc 31.9 g/dL (32-36); Mean Corpuscular Volume 95.2 fL (80-100); Mean Platelet Volume 9.7 fL (7.4-10.4); Platelet Count 320 K/uL (130-400); RDW Coefficient of Variation 12.2 % (11.5-14.5); RDW Standard Deviation 41.9 fL (36.4-46.3); Red Blood Count 3.95 M/uL (4.2-5.4); White Blood Count 6.31 K/uL (4.8-10.8)
[2020-09-01 06:28] LABS: INR 2.5 (0.9-1.1); Prothrombin Time 25.4 Seconds (9.0-12.0)
[2020-09-01 06:36] LABS: BUN Creatinine Ratio 16.1 (10-20); Creatinine Clr Calc Pharmacy 70.3 ml/min; Est GFR (African American) 67.4; Est GFR (Non-African American) 58.1; Potassium 3.9 mmol/L (3.5-5.1)
[2020-09-01] MEDS: lisinopril 40 MG TAB PO SCH (08:45)
[2020-09-01] MEDS: FUROSEMIDE 40 MG TAB PO SCH (08:45)
[2020-09-01] MEDS: LABETALOL HCL 200 MG TAB PO SCH ×2 (08:45→21:11)
[2020-09-01] MEDS: INSULIN ASPART 100 UNITS/ML 3 ML PEN SC SCH ×4 (08:47→21:14)
[2020-09-01] MEDS ORDERED: HYDROcodone/ACETAMINOPHEN 10/325 TAB PO STA (13:03)
[2020-09-01] MEDS: cefTRIAXone SODIUM 2,000 MG in DEXTROSE 5% 50 ML IV SCH (13:52)
--- NOTE | 2020-09-01 17:17 | Hospitalist Progress Note ---
Date of Service September 01, 2020 Assessment & Plan (1) Cellulitis of left lower extremity: This is a 69yo F with a PMH of DM II, HTN, GERD, CAITLYN, chronic pain syndrome, h/o PE on coumadin who presents with LLE cellulitis for past 3 weeks -Cellulitis first diagnosed on 08/14 and has since completed courses of Keflex and part of Bactrim and Doxycycline. Also given 1mg IM rocephin x 2 in clinic setting pt reports that she was trying to cut her toe nails -has not been able to see podiatry for sometime has long nail with crused nail beds -possible point of entry of infection no other skin opening or wound noted in left leg or foot pt reports she had continued edema, erythema, warmth and pain of LLE for the past 3 weeks, no improvement with multiple abx tx had not had any fever or chills no leukocytosis, no indication of sepsis. LLE DVT without evidence of DVT -Given Rocephin and vanco in ED. on IV Rocephin and Dapto MRSA nasal swab ordered , Dapto will be D/ann if MRSA screen negative ID consult requested -Continue home PRN [place], tylenol for pain control given hx of Diabetes -pt is counselled to have feet exam and toe nails care by Podiatry (2) HTN (hypertension): Continue home amlodipine, labetalol, lisinopril (3) HLD (hyperlipidemia): Continue pravastatin (4) Pulmonary embolism: On fpc coumadin for h/o DVT/PE. INR supratherapeutic on admission , coumdin kept on hold INR 2.5 ,resume Coumadin on lower dose 5 mg PO daily form Tomorrow 09/02/20 (5) Diabetes mellitus, type 2: A1c ordered. -Hold home agents -SSI while in-patient -BSG AC HS (6) Sleep apnea: CPAP HS DVT Ppx: INR 2.5 Code status: FULL PCP: Zayra Dispo:Plan to return home once medically stable. pt will benefit with out pt Podiatry appointment for diabetic foot and toe nail care plan of care d/w with pt and pts sister over phone in detail , all questions anwered Admission and Anticipated Discharge Date Admission Date: August 31, 2020 Subjective improvement of left lower ext swelling , tenderness still have increased warmth , able to walk , bear wt , redness has improved no fever or chills Review of Systems Review of Systems: All systems reviewed & are unremarkable except as noted in HPI & below Constitutional: no fever and no chills Musculoskeletal: left lower ext swelling and erythmea has improved Physical Exam Constitutional: WD/WN, vitals as above no acute distress Eyes: PERRL, conjunctivae normal, anicteric sclerae ENMT: external ear and nose normal, oropharynx normal Neck: trachea midline, no thyromegaly Respiratory: normal respiratory effort; no respiratory distress and no labored breathing Auscultation: lungs clear to auscultation bilaterally; no rales, no rhonchi and no wheezes Cardiovascular: Rate/Rhythm: regular rate and regular rhythm Extremities: + edema Gastrointestinal (Abdomen): normal bowel sounds, soft, nontender, no hepatosplenomegaly Musculoskeletal: Extremities: + lower extremity abnormal to inspection (+ pitting edema upto knee, + tenderness , mild erythema , + warmth ) Left Neurologic: PERRL, EOMI, accommodation nl, no face palsy, no dysarthria Psychiatric: A+Ox3, euthymic affect Results & Data Results & Data ([facility]) Vital Signs (Past 12 Hours) Vital Signs Temp Pulse Resp BP Pulse Ox 09/01/20 15:46 36.8 C 69 18 131/68 97 09/01/20 07:16 36.9 C 65 18 106/63 95
[2020-09-01] MEDS: amLODIPine BESYLATE 5 MG TAB PO SCH (21:11)
[2020-09-01] MEDS: PRAVASTATIN SOD 10 MG TAB PO SCH (21:11)
[2020-09-01] MEDS: POTASSIUM CHLORIDE CRTAB 20 MEQ TABCR PO SCH (21:12)
[2020-09-01] MEDS: MULTIVITAMIN TAB PO SCH (21:12)
[2020-09-01] MEDS: VITAMIN B COMPLEX TAB PO SCH (21:12)
[2020-09-01] MEDS: DAPTOmycin 350 MG in SYRINGE 0 ML IV SCH (21:33)
[2020-09-01] MEDS ORDERED: ADVANCED PROBIOTIC 1250 MG CAPSULE PO STA (22:11)
[2020-09-02] MEDS: ONDANSETRON INJ 2 MG/ML 2 ML VIAL IV PRN (00:50)
[2020-09-02] MEDS: HYDROcodone/ACETAMINOPHEN 10/325 TAB PO PRN ×4 (02:41→23:51)
[2020-09-02] MEDS: METHOCARBAMOL 750 MG TABLET PO PRN (06:24)
[2020-09-02 06:26] LABS: INR 1.7 (0.9-1.1); Prothrombin Time 17.6 Seconds (9.0-12.0)
[2020-09-02] MEDS: INSULIN ASPART 100 UNITS/ML 3 ML PEN SC SCH ×4 (09:00→21:29)
[2020-09-02] MEDS: FUROSEMIDE 40 MG TAB PO SCH (09:01)
[2020-09-02] MEDS: LABETALOL HCL 200 MG TAB PO SCH ×2 (09:02→21:27)
[2020-09-02] MEDS: lisinopril 40 MG TAB PO SCH (09:02)
[2020-09-02] MEDS: ADVANCED PROBIOTIC 1250 MG CAPSULE PO SCH (09:08)
[2020-09-02] MEDS ORDERED: traMADol HCL 50 MG TABLET PO STA (11:16)
[2020-09-02] MEDS: cefTRIAXone SODIUM 2,000 MG in DEXTROSE 5% 50 ML IV SCH (13:29)
[2020-09-02] MEDS ORDERED: WARFARIN SOD 5 MG TAB PO SCH (16:00)
[2020-09-02] MEDS ORDERED: WARFARIN SOD 7.5 MG TAB PO SCH (16:00)
--- NOTE | 2020-09-02 16:55 | Hospitalist Progress Note ---
Date of Service September 02, 2020 Assessment & Plan (1) Cellulitis of left lower extremity: This is a 69yo F with a PMH of DM II, HTN, GERD, CAITLYN, chronic pain syndrome, h/o PE on coumadin who presents with LLE cellulitis for past 3 weeks -Cellulitis first diagnosed on 08/14 and has since was prescribed Bactrim , then switched to Doxycycline as no improvement noted was on PO Kefex Also given 1mg IM Rocephin x 2 in clinic setting pt reports that she was trying to cut her toe nails -has not been able to see podiatry for sometime has long nail with crusted nail beds -possible point of entry of infection no other skin opening or wound noted in left leg or foot pt reports she had continued edema, erythema, warmth and pain of LLE for the past 3 weeks, no improvement with multiple abx tx had not had any fever or chills no leukocytosis, no indication of sepsis. LLE DVT without evidence of DVT -Given Rocephin and vanco in ED. on IV Rocephin and Dapto MRSA nasal swab negative , Dapto D/ann ID consult requested -appreciate input CT of left leg and foot ordered, if no abscess noted Abx will be changed to Vancomycin for skin pathogen , Rocephin will be d/ann -Continue home PRN [place], tylenol for pain control pt reports worsening of pain with ambulation during Physical therapy added PRN Tramadol for breakthrough pain hx of Diabetes -pt is counselled to have feet exam and toe nails care by Podiatry (2) HTN (hypertension): Continue home amlodipine, labetalol, lisinopril (3) HLD (hyperlipidemia): Continue pravastatin (4) Pulmonary embolism: On [facility] Coumadin for h/o DVT/PE. INR supratherapeutic on admission , received Vit K in ER INR 1.7 today , Coumadin resumed 7.5 mg daily follow INR INR 2.5 ,resume Coumadin on lower dose 5 mg PO daily form Tomorrow 09/02/20 (5) Diabetes mellitus, type 2: A1c ordered. -Hold home agents -SSI while in-patient -BSG AC HS (6) Sleep apnea: CPAP HS DVT Ppx: INR 2.5 Code status: FULL PCP: Zayra Dispo:Plan to return home once medically stable. pt will benefit with out pt Podiatry appointment for diabetic foot and toe nail care plan of care d/w with pt in detail , all questions answered Admission and Anticipated Discharge Date Admission Date: September 01, 2020 Subjective persistent swelling on left leg still having pain while standing up no fever or chills offers no new complain Review of Systems Review of Systems: All systems reviewed & are unremarkable except as noted in HPI & below Constitutional: no fever, no chills, no body aches and no fatigue Musculoskeletal: + swelling left lower leg Physical Exam Constitutional: WD/WN, vitals as above no acute distress Eyes: PERRL, conjunctivae normal, anicteric sclerae ENMT: external ear and nose normal, oropharynx normal Neck: trachea midline, no thyromegaly Respiratory: normal respiratory effort; no respiratory distress and no labored breathing Auscultation: lungs clear to auscultation bilaterally; no rales, no rhonchi and no wheezes Cardiovascular: Rate/Rhythm: regular rate and regular rhythm Extremities: + edema Gastrointestinal (Abdomen): normal bowel sounds, soft, nontender, no hepatosplenomegaly Musculoskeletal: Extremities: + lower extremity abnormal to inspection (+ pitting edema upto knee, + tenderness , improved erythema , no warmth ) Left and + foot abnormality (left ankle and foot swelling ) Left Neurologic: PERRL, EOMI, accommodation nl, no face palsy, no dysarthria Psychiatric: A+Ox3, euthymic affect Results & Data Results & Data ([facility]) Vital Signs (Past 12 Hours) Vital Signs Temp Pulse Resp BP Pulse Ox 09/02/20 15:30 36.6 C 71 18 116/69 97 09/02/20 07:13 36.7 C 74 19 116/69 98
[2020-09-02] MEDS: amLODIPine BESYLATE 5 MG TAB PO SCH (21:27)
[2020-09-02] MEDS: MULTIVITAMIN TAB PO SCH (21:27)
[2020-09-02] MEDS: VITAMIN B COMPLEX TAB PO SCH (21:27)
[2020-09-02] MEDS: PRAVASTATIN SOD 10 MG TAB PO SCH (21:27)
[2020-09-02] MEDS: POTASSIUM CHLORIDE CRTAB 20 MEQ TABCR PO SCH (21:27)
[2020-09-02] MEDS: traMADol HCL 50 MG TABLET PO PRN (21:34)
[2020-09-03] MEDS: METHOCARBAMOL 750 MG TABLET PO PRN ×2 (05:27→20:53)
--- NOTE | 2020-09-03 06:57 | XRay Report ---
XR chest 1V portable CLINICAL HISTORY: PICC catheter insertion COMPARISON STUDY: 09/27/2015 FINDINGS: The heart is borderline enlarged. There is no failure. There is no focal pulmonary consolid ation. There are no pleural effusions. Arthritic changes are present within the left shoulder. The re ported left-sided PICC catheter is not visualized.[ IMPRESSION: 1. No active disease in the chest 2. Nonvisualization of the reported PICC catheter. ACT 112: Negative or not required by law. Electronically signed by: Armando De Dios M.D. 09/03/2020 6:55 AM
[2020-09-03] MEDS: HYDROcodone/ACETAMINOPHEN 10/325 TAB PO PRN ×3 (07:45→23:33)
[2020-09-03 08:07] LABS: INR 1.4 (0.9-1.1); Prothrombin Time 14.6 Seconds (9.0-12.0)
[2020-09-03] MEDS ORDERED: VANCOMYCIN CONSULT ACTIVE PRN (08:09)
[2020-09-03] MEDS ORDERED: VANCOMYCIN HCL 1,000 MG in SODIUM CHLORIDE 0.9% 250 ML IV SCH (08:15)
[2020-09-03] MEDS ORDERED: VANCOMYCIN HCL 2,500 MG in SODIUM CHLORIDE 0.9% 500 ML IV ONE (08:45)
[2020-09-03 08:55] LABS: Creatinine Clr Calc Pharmacy 77.4 ml/min; Est GFR (African American) 75.6; Est GFR (Non-African American) 65.2
[2020-09-03] MEDS: INSULIN ASPART 100 UNITS/ML 3 ML PEN SC SCH ×4 (08:55→21:21)
[2020-09-03] MEDS: lisinopril 40 MG TAB PO SCH (08:57)
[2020-09-03] MEDS: ADVANCED PROBIOTIC 1250 MG CAPSULE PO SCH (08:57)
[2020-09-03] MEDS: LABETALOL HCL 200 MG TAB PO SCH ×2 (08:57→20:19)
[2020-09-03] MEDS: FUROSEMIDE 40 MG TAB PO SCH (08:57)
[2020-09-03] MEDS: POLYETHYLENE (MIRALAX) 17 GM PACK PO SCH (08:58)
--- NOTE | 2020-09-03 09:38 | Pharmacy Report ---
Pharmacy Abx Initial Consult - Date of Service September 03, 2020 - Pharmacy Dosing Scope Date of Consult: 09/03/20 Consultation requested by: Dr. Briceño Pharmacy is consulted to initiate vancomycin IV dosing therapy, order appropriate labs and adjust drug dose/frequency. - Subjective The patient is a 69 year old F admitted on 09/01/20 19:09. - Objective Height: 5 ft 4 in Weight: 125.6 kg Vital Signs (Past 12hrs): Vital Signs Temp Pulse Resp BP Pulse Ox 09/03/20 07:01 36.5 C 74 16 119/67 97 09/03/20 00:05 37.1 C 75 14 128/70 96 Lab Results (24hrs): Laboratory Tests (24 Hours) 09/03/20 07:33 Creatinine 0.90 Est Cr Clr Drug Dosing 77.4 - Assessment & Plan Assessment 69 year old F ordered empiric vancomycin for treatment of left lower extremity cellulitis. This cellulitis was diagnosed on 08/14 and patient was prescribed multiple courses of antibiotics (Bactrim, doxycycline, and cephalexin). Patient admitted on 08/31 and treated with ceftriaxone and daptomycin. Genoveva DYER was consulted and recommended IV vancomycin while inpatient and to discharge with 14-21 day course of Bactrim. Patient has been afebrile with no leukocytosis during this admission. No cultures obtained. Renal function appears to be at baseline. Plan Vancomycin IV * Estimated PK Parameters: [place] 0.068 hr-1, t1/2 10 hr * Loading dose: 2500 mg (20 mg/kg) * Maintenance dose: 1250 mg IV (10 mg/kg) every 12 hours * Goal trough level for cellulitis : 10 to 20 mcg/mL * Trough level ordered for 09/05/20 * A less than traditional dose has been selected due to likelihood of drug accumulation in obese patient Pharmacy will continue to follow and will adjust dose/frequency as necessary. Thank you.
[2020-09-03] MEDS: traMADol HCL 50 MG TABLET PO PRN ×3 (11:40→22:11)
[2020-09-03] MEDS: HEPARIN SOD 5,000 UNIT/0.5 ML VIAL SQ SCH ×2 (13:42→21:58)
[2020-09-03] MEDS ORDERED: IOVERSOL 100ml IV ONE (15:27)
--- NOTE | 2020-09-03 15:34 | Hospitalist Progress Note ---
Date of Service September 03, 2020 Assessment & Plan (1) Cellulitis of left lower extremity: This is a 69yo F with a PMH of DM II, HTN, GERD, CAITLYN, chronic pain syndrome, h/o PE on coumadin who presents with LLE cellulitis for past 3 weeks - infection no other skin opening or wound noted in left leg or foot pt reports she had continued edema, erythema, warmth and pain of LLE for the past 3 weeks, no improvement with multiple abx tx had not had any fever or chills no leukocytosis, no indication of sepsis. 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 INR supratherapeutic on admission , received Vit K in ER INR 1.6 Coumadin resumed , SC heparin for DVT prophylaxis , till INR theraputic (5) Diabetes mellitus, type 2: -Hold home agents -SSI while in-patient -BSG AC HS (6) Sleep apnea: CPAP HS DVT Ppx: Coumadin /SC heparin , till INR therapeutic Code status: FULL PCP: Zayra Dispo:Plan to return home once medically stable. pt will benefit with out pt Podiatry appointment for diabetic foot and toe nail care plan of care d/w with pt in detail , all questions answered Admission and Anticipated Discharge Date Admission Date: September 01, 2020 Subjective leg swelling and pain has improved a bit able to walk with PT on hallway no fever or chills offers no new complain Review of Systems Review of Systems: All systems reviewed & are unremarkable except as noted in HPI & below Constitutional: no fever, no chills and no fatigue Musculoskeletal: + swelling left leg and feet swelling improvement of tenderness , able to bear wt while walking Physical Exam Constitutional: WD/WN, vitals as above no acute distress Eyes: PERRL, conjunctivae normal, anicteric sclerae ENMT: external ear and nose normal, oropharynx normal Neck: trachea midline, no thyromegaly Respiratory: normal respiratory effort; no respiratory distress and no labored breathing Auscultation: lungs clear to auscultation bilaterally; no rales, no rhonchi and no wheezes Cardiovascular: Rate/Rhythm: regular rate and regular rhythm Extremities: + edema Gastrointestinal (Abdomen): normal bowel sounds, soft, nontender, no hepatosplenomegaly Musculoskeletal: Extremities: + lower extremity abnormal to inspection (+ pitting edema upto knee, improved tenderness , resolution of tendernss ) Left and + foot abnormality (left ankle and foot swelling ) Neurologic: PERRL, EOMI, accommodation nl, no face palsy, no dysarthria Psychiatric: A+Ox3, euthymic affect Results & Data Results & Data ([facility]) Vital Signs (Past 12 Hours) Vital Signs Temp Pulse Resp BP Pulse Ox 09/03/20 07:01 36.5 C 74 16 119/67 97
--- NOTE | 2020-09-03 15:58 | CT Scan Report ---
CT tib/fib LT w con, CT foot LT w con HISTORY: 69 years-old Female left leg cellulitis /eval for abscess acute pain and swelling of the le ft lower extremity COMPARISON: None TECHNIQUE: Multiple axial CT images of the left tibia and fibula and left foot were obtained followin g the intravenous administration of 94 mL Optiray 320. A dose lowering technique was used consistent with the principals of ANALIA. FINDINGS: TIBIA/FIBULA: Left knee total joint arthroplasty and patella resurfacing with associated streak artifact. There is mild to moderate diffuse skin thickening with subcutaneous edema. No drainable fluid collection. Scat tered subcutaneous nonspecific calcifications are noted measuring up to 8 mm. Diffuse arterial calcif ications. No enhancing soft tissue mass. Demineralized appearance of the bones with mild tibiotalar o steoarthritis. No acute fracture or suspicious bone lesion. FOOT: Mild to moderate diffuse skin thickening with subcutaneous edema. No drainable fluid collection ovoid enhancing soft tissue mass. Tendons and ligaments are not well dilated by CT technique. Arterial ivelisse cifications are noted. There is mild to moderate thickening of the mid and distal Achilles tendon whi ch contains a punctate calcification within the mid fibers on image 3 series 4. Demineralized appeara nce of the bones. Corticated ossifications adjacent to the anterior process of the calcaneus may refl ect remote fracture fragments. Mild to moderate multifocal osteoarthritis without acute fracture or d islocation. IMPRESSION: 1. No acute fracture or dislocation. 2. Mild to moderate diffuse skin thickening with subcutaneous edema suggestive of cellulitis. Lymphed gregorio or venous stasis are additional differential considerations. 3. No drainable fluid collection. 4. Osteoarthritis as above. 5. Left knee total joint arthroplasty with patellar resurfacing. ACT 112: Negative or not required by law. The above report was generated using voice recognition software. It may contain grammatical, syntax o r spelling errors. Electronically signed by: Patrick Pereira M.D. 09/03/2020 3:57 PM
[2020-09-03] MEDS ORDERED: WARFARIN SOD 10 MG TAB PO SCH (16:00)
[2020-09-03] MEDS ORDERED: Nursing to Pharmacy Communication SCH (16:45)
[2020-09-03] MEDS ORDERED: SODIUM CHLORIDE 0.65% NA SOLN 45 ML (OCEAN) PRN (18:07)
[2020-09-03] MEDS: PRAVASTATIN SOD 10 MG TAB PO SCH (20:19)
[2020-09-03] MEDS: VITAMIN B COMPLEX TAB PO SCH (20:19)
[2020-09-03] MEDS: MULTIVITAMIN TAB PO SCH (20:19)
[2020-09-03] MEDS: amLODIPine BESYLATE 5 MG TAB PO SCH (20:19)
[2020-09-03] MEDS: POTASSIUM CHLORIDE CRTAB 20 MEQ TABCR PO SCH (20:20)
[2020-09-03] MEDS: VANCOMYCIN HCL 1,250 MG in SODIUM CHLORIDE 0.9% 250 ML IV SCH (20:22)
[2020-09-03] MEDS: WARFARIN SOD 10 MG TAB PO SCH (20:22)
[2020-09-03] MEDS: ONDANSETRON INJ 2 MG/ML 2 ML VIAL IV PRN (23:33)
[2020-09-04] MEDS: traMADol HCL 50 MG TABLET PO PRN ×3 (05:27→19:25)
[2020-09-04] MEDS: HEPARIN SOD 5,000 UNIT/0.5 ML VIAL SQ SCH ×3 (05:27→21:16)
[2020-09-04 06:43] LABS: INR 1.4 (0.9-1.1); Prothrombin Time 14.2 Seconds (9.0-12.0)
[2020-09-04 06:57] LABS: Creatinine Clr Calc Pharmacy 88.1 ml/min; Est GFR (African American) 88.5; Est GFR (Non-African American) 76.4
[2020-09-04] MEDS: HYDROcodone/ACETAMINOPHEN 10/325 TAB PO PRN ×3 (07:32→22:30)
[2020-09-04] MEDS: FUROSEMIDE 40 MG TAB PO SCH (09:04)
[2020-09-04] MEDS: lisinopril 40 MG TAB PO SCH (09:04)
[2020-09-04] MEDS: ADVANCED PROBIOTIC 1250 MG CAPSULE PO SCH (09:04)
[2020-09-04] MEDS: LABETALOL HCL 200 MG TAB PO SCH ×2 (09:04→21:19)
[2020-09-04] MEDS: POLYETHYLENE (MIRALAX) 17 GM PACK PO SCH (09:04)
[2020-09-04] MEDS: INSULIN ASPART 100 UNITS/ML 3 ML PEN SC SCH ×4 (09:05→20:59)
[2020-09-04] MEDS: VANCOMYCIN HCL 1,250 MG in SODIUM CHLORIDE 0.9% 250 ML IV SCH ×2 (09:15→21:04)
--- NOTE | 2020-09-04 17:31 | Hospitalist Progress Note ---
Date of Service September 04, 2020 Assessment & Plan (1) Cellulitis of left lower extremity: This is a 69yo F with a PMH of DM II, HTN, GERD, CAITLYN, chronic pain syndrome, h/o PE on coumadin who presents with LLE cellulitis for past 3 weeks - infection no other skin opening or wound noted in left leg or foot pt reports she had continued edema, erythema, warmth and pain of LLE for the past 3 weeks, no improvement with multiple abx tx had not had any fever or chills no leukocytosis, no indication of sepsis. LLE DVT without evidence of DVT - appreciate input from [employer] CT of left leg and foot: diffuse soft tissue swelling -due to cellulitis no abscess or drainable fluid collection noted On IV Vancomycin lower ext swelling , redness and pain has improved hx of Diabetes /with diabetic neuropathy : possible infection entry point -crusted toe nails pt is counselled to have diabetic feet exam and toe nails care by Podiatry (2) HTN (hypertension): Continue home amlodipine, labetalol, lisinopril (3) HLD (hyperlipidemia): Continue pravastatin (4) Pulmonary embolism: On long-term Coumadin for h/o DVT/PE. INR supratherapeutic on admission , received Vit K in ER INR 1.6 Coumadin resumed , SC heparin for DVT prophylaxis , till INR theraputic (5) Diabetes mellitus, type 2: -Hold home agents -SSI while in-patient -BSG AC HS (6) Sleep apnea: CPAP HS DVT Ppx: Coumadin /SC heparin , till INR therapeutic Code status: FULL PCP: Zayra Dispo:Plan to return home once medically stable. pt will benefit with out pt Podiatry appointment for diabetic foot and toe nail care plan of care d/w with pt in detail , all questions answered Admission and Anticipated Discharge Date Admission Date: September 01, 2020 Subjective leg swelling and pain has improved a bit able to walk with PT on hallway no fever or chills offers no new complain Physical Exam Constitutional: WD/WN, vitals as above no acute distress Eyes: PERRL, conjunctivae normal, anicteric sclerae ENMT: external ear and nose normal, oropharynx normal Neck: trachea midline, no thyromegaly Respiratory: normal respiratory effort; no respiratory distress and no labored breathing Auscultation: lungs clear to auscultation bilaterally; no rales, no rhonchi and no wheezes Cardiovascular: Rate/Rhythm: regular rate and regular rhythm Extremities: + edema Gastrointestinal (Abdomen): normal bowel sounds, soft, nontender, no hepatosplenomegaly Musculoskeletal: Extremities: + lower extremity abnormal to inspection (+ pitting edema upto knee, improved tenderness , resolution of tendernss ) Left and + foot abnormality (left ankle and foot swelling ) Neurologic: PERRL, EOMI, accommodation nl, no face palsy, no dysarthria Psychiatric: A+Ox3, euthymic affect Results & Data Results & Data ([facility]) Vital Signs (Past 12 Hours) Vital Signs Temp Pulse Resp BP Pulse Ox 09/04/20 16:00 36.7 C 65 16 109/63 96 09/04/20 07:26 36.9 C 68 18 135/74 95
[2020-09-04] MEDS: MULTIVITAMIN TAB PO SCH (21:19)
[2020-09-04] MEDS: POTASSIUM CHLORIDE CRTAB 20 MEQ TABCR PO SCH (21:19)
[2020-09-04] MEDS: WARFARIN SOD 10 MG TAB PO SCH (21:19)
[2020-09-04] MEDS: amLODIPine BESYLATE 5 MG TAB PO SCH (21:19)
[2020-09-04] MEDS: VITAMIN B COMPLEX TAB PO SCH (21:19)
[2020-09-04] MEDS: PRAVASTATIN SOD 10 MG TAB PO SCH (21:19)
[2020-09-04] MEDS: METHOCARBAMOL 750 MG TABLET PO PRN (22:31)
[2020-09-05] MEDS: traMADol HCL 50 MG TABLET PO PRN ×4 (02:22→19:19)
[2020-09-05] MEDS: HEPARIN SOD 5,000 UNIT/0.5 ML VIAL SQ SCH ×3 (05:52→20:52)
[2020-09-05] MEDS: HYDROcodone/ACETAMINOPHEN 10/325 TAB PO PRN ×3 (05:53→22:50)
[2020-09-05] MEDS ORDERED: VANCOMYCIN TROUGH ONE (08:30)
[2020-09-05 09:03] LABS: Creatinine Clr Calc Pharmacy 89.3 ml/min; Est GFR (African American) 89.9; Est GFR (Non-African American) 77.6
[2020-09-05] MEDS: INSULIN ASPART 100 UNITS/ML 3 ML PEN SC SCH ×4 (09:06→21:27)
[2020-09-05] MEDS: ADVANCED PROBIOTIC 1250 MG CAPSULE PO SCH (09:07)
[2020-09-05] MEDS: FUROSEMIDE 40 MG TAB PO SCH (09:07)
[2020-09-05] MEDS: lisinopril 40 MG TAB PO SCH (09:07)
[2020-09-05] MEDS: LABETALOL HCL 200 MG TAB PO SCH ×2 (09:07→20:51)
[2020-09-05] MEDS: POLYETHYLENE (MIRALAX) 17 GM PACK PO SCH (09:08)
[2020-09-05] MEDS: VANCOMYCIN HCL 1,250 MG in SODIUM CHLORIDE 0.9% 250 ML IV SCH ×2 (09:23→20:52)
--- NOTE | 2020-09-05 10:09 | Pharmacy Report ---
Pharmacy Abx Dose Short Note - Date of Service September 05, 2020 - Assessment & Plan Assessment 69 year old F receiving Vancomycin for treatment of cellulitis Day # 3 of antimicrobial therapy. Plan Vancomycin * Trough level of 18.4 mcg/mL is therapeutic * Continue dose of 1250 mg IV every 12 hours OR Change to [] mg IV every [] hours * Will order Vancomycin trough / to check for accumulation. Pharmacy will continue to follow and will adjust dose/frequency as necessary. Thank you.
[2020-09-05 12:54] LABS: INR 1.4 (0.9-1.1)
--- NOTE | 2020-09-05 15:49 | Hospitalist Progress Note ---
Date of Service September 05, 2020 Assessment & Plan (1) Cellulitis of left lower extremity: This is a 69yo F with a PMH of DM II, HTN, GERD, CAITLYN, chronic pain syndrome, h/o PE on Coumadin presented with LLE cellulitis for past 3 weeks -failed out pt treatment no other skin opening or wound noted in left leg or foot no leukocytosis, no indication of sepsis. LLE DVT without evidence of DVT -CT of left leg and foot: diffuse soft tissue swelling -due to cellulitis no abscess or drainable fluid collection noted appreciate input from [employer] ID recommend IV Vancomycin during inpatient stay plan to transition to oral agent ( Bactrim or Doxycycline ) for total 2 weeks tx hx of Diabetes /with diabetic neuropathy : possible infection entry point -crusted toe nails pt is counselled to have diabetic feet exam and toe nails care by Podiatry (2) HTN (hypertension): Continue home amlodipine, labetalol, lisinopril (3) HLD (hyperlipidemia): Continue pravastatin (4) Pulmonary embolism: On coverage specialist rn Coumadin for h/o DVT/PE. INR supratherapeutic on admission , received Vit K in ER INR remains subtherapeutic Coumadin resumed , SC heparin for DVT prophylaxis , till INR therapeutic (5) Diabetes mellitus, type 2: -Hold home agents -SSI while in-patient -BSG AC HS (6) Sleep apnea: CPAP HS DVT Ppx: Coumadin /SC heparin , till INR therapeutic Code status: FULL PCP: Zayra Dispo:Plan to return home in next 1-2 days with oral antibiotic pt will benefit with out pt Podiatry appointment for diabetic foot and toe nail care plan of care d/w with pt in detail , all questions answered Admission and Anticipated Discharge Date Admission Date: September 01, 2020 Subjective left lower ext redness has improved normal skin noted around outlined area for cellulitis minimum pitting edema no tenderness able to walk, bear wt independently no fever or chills Physical Exam Constitutional: WD/WN, vitals as above no acute distress Eyes: PERRL, conjunctivae normal, anicteric sclerae ENMT: external ear and nose normal, oropharynx normal Neck: trachea midline, no thyromegaly Respiratory: normal respiratory effort; no respiratory distress and no labored breathing Auscultation: lungs clear to auscultation bilaterally; no rales, no rhonchi and no wheezes Cardiovascular: Rate/Rhythm: regular rate and regular rhythm Extremities: + edema Gastrointestinal (Abdomen): normal bowel sounds, soft, nontender, no hepato splenomegaly Musculoskeletal: Extremities: + lower extremity abnormal to inspection (+ pitting edema upto knee, improved tenderness , resolution of tendernss ) Left and + foot abnormality (left ankle and foot swelling ) Neurologic: PERRL, EOMI, accommodation nl, no face palsy, no dysarthria Psychiatric: A+Ox3, euthymic affect Results & Data Results & Data ([facility]) Vital Signs (Past 12 Hours) Vital Signs Temp Pulse Resp BP Pulse Ox 09/05/20 15:40 36.7 C 70 22 153/76 H 98 09/05/20 08:20 36.6 C 68 16 139/88 97
[2020-09-05] MEDS: amLODIPine BESYLATE 5 MG TAB PO SCH (20:51)
[2020-09-05] MEDS: POTASSIUM CHLORIDE CRTAB 20 MEQ TABCR PO SCH (20:51)
[2020-09-05] MEDS: PRAVASTATIN SOD 10 MG TAB PO SCH (20:51)
[2020-09-05] MEDS: MULTIVITAMIN TAB PO SCH (20:51)
[2020-09-05] MEDS: VITAMIN B COMPLEX TAB PO SCH (20:51)
[2020-09-05] MEDS: WARFARIN SOD 10 MG TAB PO SCH (20:51)
[2020-09-05] MEDS: METHOCARBAMOL 750 MG TABLET PO PRN (22:50)
[2020-09-06] MEDS: HEPARIN SOD 5,000 UNIT/0.5 ML VIAL SQ SCH ×3 (05:36→21:40)
[2020-09-06] MEDS: traMADol HCL 50 MG TABLET PO PRN ×3 (05:36→18:14)
[2020-09-06 06:39] LABS: INR 1.6 (0.9-1.1); Prothrombin Time 16.1 Seconds (9.0-12.0)
[2020-09-06 06:57] LABS: Creatinine Clr Calc Pharmacy 83.9 ml/min; Est GFR (African American) 83.4; Est GFR (Non-African American) 71.9
[2020-09-06] MEDS: HYDROcodone/ACETAMINOPHEN 10/325 TAB PO PRN ×3 (07:44→21:36)
[2020-09-06] MEDS: lisinopril 40 MG TAB PO SCH (08:32)
[2020-09-06] MEDS: ADVANCED PROBIOTIC 1250 MG CAPSULE PO SCH (08:32)
[2020-09-06] MEDS: FUROSEMIDE 40 MG TAB PO SCH (08:33)
[2020-09-06] MEDS: LABETALOL HCL 200 MG TAB PO SCH ×2 (08:33→21:36)
[2020-09-06] MEDS: INSULIN ASPART 100 UNITS/ML 3 ML PEN SC SCH ×4 (08:34→21:43)
[2020-09-06] MEDS: POLYETHYLENE (MIRALAX) 17 GM PACK PO SCH (08:34)
[2020-09-06] MEDS: VANCOMYCIN HCL 1,250 MG in SODIUM CHLORIDE 0.9% 250 ML IV SCH ×2 (09:48→21:41)
--- NOTE | 2020-09-06 09:50 | Pharmacy Report ---
Pharmacy Abx Dose Short Note - Date of Service September 06, 2020 - Assessment & Plan Assessment 69 year old F receiving vancomycin for treatment of left lower extremity cellulitis Day # 4 of antimicrobial therapy. Current plan is to continue IV vancomycin while inpatient and convert to PO agent with MRSA coverage upon discharge Renal function stable (SCr today of 0.83 mg/dL) Plan Vancomycin * Trough level of 21.4 mcg/mL was obtained ~2.5 hours prior to ordered time (0553 vs. 0830) * Estimating actual trough level ~18, in line with previously obtained trough level * Continue dose of 1250 mg IV every 12 hours * Goal trough level for cellulitis : 10 to 20 mcg/mL * Will order follow-up vanco trough for 09/08, or earlier if patient has a dramatic change in renal function Pharmacy will continue to follow and will adjust dose/frequency as necessary. Thank you.
--- NOTE | 2020-09-06 17:20 | Hospitalist Progress Note ---
Date of Service September 06, 2020 Assessment & Plan (1) Cellulitis of left lower extremity: This is a 69yo F with a PMH of DM II, HTN, GERD, CAITLYN, chronic pain syndrome, h/o PE on Coumadin presented with LLE cellulitis for past 3 weeks -failed out pt treatment no other skin opening or wound noted in left leg or foot no leukocytosis, no indication of sepsis. LLE DVT without evidence of DVT -CT of left leg and foot: diffuse soft tissue swelling -due to cellulitis no abscess or drainable fluid collection noted appreciate input from [employer] pt treated with IV Vancomycin during hospital stay D/w ID recommend discharge home with PO Bactrim for 3 weeks family physician follow up in a week BMP check in a week to assess renal function while on bactirm hx of Diabetes /with diabetic neuropathy : possible infection entry point -crusted toe nails pt is counselled to have diabetic feet exam and toe nails care by Podiatry (2) HTN (hypertension): Continue home amlodipine, labetalol, lisinopril (3) HLD (hyperlipidemia): Continue pravastatin (4) Pulmonary embolism: -On watermaster Coumadin for h/o DVT/PE. INR supratherapeutic on admission , lower ext Doppler : no evidence of DVT received Vit K in ER INR 1.6 Coumadin resumed , SC heparin for DVT prophylaxis , till INR therapeutic (5) Diabetes mellitus, type 2: -Hold home agents -will be resumed on discharge -SSI while in-patient -BSG AC HS (6) Sleep apnea: CPAP HS DVT Ppx: Coumadin /SC heparin , till INR therapeutic Code status: FULL PCP: Zayra Disposition : continue with IV Vancomycin for today dc home in AM with PO Bactrim pt will benefit with out pt Podiatry appointment for diabetic foot and toe nail care plan of care d/w with pt in detail , all questions answered Admission and Anticipated Discharge Date Admission Date: September 01, 2020 Subjective offers no new complain no fever or chills pain and swelling of left lower ext has improved Physical Exam Constitutional: WD/WN, vitals as above no acute distress Eyes: PERRL, conjunctivae normal, anicteric sclerae ENMT: external ear and nose normal, oropharynx normal Neck: trachea midline, no thyromegaly Respiratory: normal respiratory effort; no respiratory distress and no labored breathing Auscultation: lungs clear to auscultation bilaterally; no rales, no rhonchi and no wheezes Cardiovascular: Rate/Rhythm: regular rate and regular rhythm Extremities: + edema Gastrointestinal (Abdomen): normal bowel sounds, soft, nontender, no hepatosplenomegaly Musculoskeletal: Extremities: + lower extremity abnormal to inspection (+ pitting edema upto knee, improved tenderness , resolution of tendernss ) Left and + foot abnormality (left ankle and foot swelling ) Neurologic: PERRL, EOMI, accommodation nl, no face palsy, no dysarthria Psychiatric: A+Ox3, euthymic affect Results & Data Results & Data ([facility]) Vital Signs (Past 12 Hours) Vital Signs Temp Pulse Resp BP Pulse Ox 09/06/20 15:27 36.9 C 71 16 136/84 96 09/06/20 07:42 36.7 C 70 16 117/51 L 96
[2020-09-06] MEDS: WARFARIN SOD 10 MG TAB PO SCH (21:35)
[2020-09-06] MEDS: PRAVASTATIN SOD 10 MG TAB PO SCH (21:36)
[2020-09-06] MEDS: MULTIVITAMIN TAB PO SCH (21:36)
[2020-09-06] MEDS: POTASSIUM CHLORIDE CRTAB 20 MEQ TABCR PO SCH (21:36)
[2020-09-06] MEDS: VITAMIN B COMPLEX TAB PO SCH (21:36)
[2020-09-06] MEDS: amLODIPine BESYLATE 5 MG TAB PO SCH (21:39)
[2020-09-07] MEDS: traMADol HCL 50 MG TABLET PO PRN ×2 (02:22→07:38)
[2020-09-07] MEDS: HEPARIN SOD 5,000 UNIT/0.5 ML VIAL SQ SCH ×2 (05:23→12:45)
[2020-09-07] MEDS: HYDROcodone/ACETAMINOPHEN 10/325 TAB PO PRN ×2 (05:23→13:28)
[2020-09-07 06:21] LABS: INR 1.7 (0.9-1.1); Prothrombin Time 17.6 Seconds (9.0-12.0)
[2020-09-07] MEDS: lisinopril 40 MG TAB PO SCH (08:25)
[2020-09-07] MEDS: VANCOMYCIN HCL 1,250 MG in SODIUM CHLORIDE 0.9% 250 ML IV SCH (08:26)
[2020-09-07] MEDS: ADVANCED PROBIOTIC 1250 MG CAPSULE PO SCH (08:26)
[2020-09-07] MEDS: LABETALOL HCL 200 MG TAB PO SCH (08:26)
[2020-09-07] MEDS: POLYETHYLENE (MIRALAX) 17 GM PACK PO SCH (08:26)
[2020-09-07] MEDS: FUROSEMIDE 40 MG TAB PO SCH (08:26)
[2020-09-07] MEDS: INSULIN ASPART 100 UNITS/ML 3 ML PEN SC SCH ×2 (08:36→12:45)
--- NOTE | 2020-09-07 12:45 | Discharge Summary ---
Date of Service September 07, 2020 Admission HPI Per Admitting Provider This is a 69yo F with a PMH of DM II, HTN, GERD, CAITLYN, chronic pain syndrome, h/o PE on coumadin who presents with LLE redness and pain. Was seen in [facility] ED in 08/14 with similar complaints diagnosed as LLE cellulitis and was discharged home on Keflex and Bactrim. Symptoms continued and patient saw PCP in follow up on 08/20 and doxycycline was started. Followed up with weekend clinic on 08/28 and 08/29 with 1mg IM Rocephin was given x 2. An Ask-a-Doc infection disease consult was placed by PCP and resulted today with recommendation for lower extremity ultrasound as well as increasing Keflex dose to 500mg QID for a more accurate weight based dose. At PCP's office today, patient's LLE cellulitis was thought to have had modest improvement but with weakness and nausea developing in interim, PCP sent to ED for further evaluation. Patient states swelling in left lower extremity has improved significantly but still experiencing shocklike pain and warmth. Feels fatigued and nauseous but no vomiting. Denies any fever, chills, lightheadedness, headache, chest pain, shortness of breath, nausea, vomiting, abdominal pain, dysuria, diarrhea or constipation. Is on custodial anticoagulation for history of PE and concern for underling clotting disorder, per patient. Principal Diagnosis LEFT LOWER EXTREMITY CELLULITIS TYPE 2 DIABETES Discharge Exam Constitutional WD/WN, vitals as above no acute distress Eyes PERRL, conjunctivae normal, anicteric sclerae ENMT external ear and nose normal, oropharynx normal Neck trachea midline, no thyromegaly Respiratory normal respiratory effort; no respiratory distress and no labored breathing Auscultation: lungs clear to auscultation bilaterally; no rales, no rhonchi and no wheezes Cardiovascular Rate/Rhythm: regular rate and regular rhythm Extremities: + edema Gastrointestinal (Abdomen) normal bowel sounds, soft, nontender, no hepatosplenomegaly Musculoskeletal Extremities: + lower extremity abnormal to inspection (+ pitting edema upto knee, improved tenderness , resolution of tendernss ) Left and + foot abnormality (left ankle and foot swelling ) Neurologic PERRL, EOMI, accommodation nl, no face palsy, no dysarthria Psychiatric A+Ox3, euthymic affect Discharge Data Allergies Allergy/AdvReac Type Severity Reaction Status Date / Time aspirin Allergy Mild SWELLING Verified 08/31/20 15:37 chocolate flavor Allergy Mild SWELLING Verified 08/31/20 15:37 peanut Allergy Mild SWELLING Verified 09/02/20 12:29 acetaminophen Allergy Unknown hives Verified 08/31/20 20:47 (takes norco at home) DUST/GRASS Allergy Mild SWELLING Uncoded 08/31/20 15:37 Consultations 08/31/20 16:36 ED Decision to Admit Stat 09/01/20 19:06 Consult Infectious Diseases Routine Ordered Studies 08/31/20 13:51 US venous doppler LE LT Stat 09/02/20 16:02 CT tib/fib LT w con Routine 09/02/20 16:41 CT foot LT w con Routine Hospital Course (1) Cellulitis of left lower extremity: This is a 69yo F with a PMH of DM II, HTN, GERD, CAITLYN, chronic pain syndrome, h/o PE on Coumadin presented with LLE cellulitis for past 3 weeks -failed out pt treatment no other skin opening or wound noted in left leg or foot no leukocytosis, no indication of sepsis. LLE DVT without evidence of DVT -CT of left leg and foot: diffuse soft tissue swelling -due to cellulitis no abscess or drainable fluid collection noted appreciate input from [employer] ID pt treated with IV Vancomycin during hospital stay D/w ID recommend discharge home with PO Bactrim for 3 weeks family physician follow up in a week BMP check in a week to assess renal function while on bactirm hx of Diabetes /with diabetic neuropathy : possible infection entry point -crusted toe nails pt is counselled to have diabetic feet exam and toe nails care by Podiatry (2) HTN (hypertension): Continue home amlodipine, labetalol, lisinopril (3) HLD (hyperlipidemia): Continue pravastatin (4) Pulmonary embolism: -On medical terminologist Coumadin for h/o DVT/PE. INR supratherapeutic on admission , lower ext Doppler : no evidence of DVT received Vit K in ER INR 1.6 Coumadin resumed , SC heparin for DVT prophylaxis , till INR therapeutic (5) Diabetes mellitus, type 2: -Hold home agents -will be resumed on discharge -SSI while in-patient -BSG AC HS (6) Sleep apnea: CPAP HS DVT Ppx: Coumadin Code status: FULL PCP: Dr Iverson Disposition : dc home with PO Bactrim today pt will benefit with out pt Podiatry appointment for diabetic foot and toe nail care plan of care d/w with pt in detail , all questions answered Total Time Total Time Spent Total Time Spent (In Minutes): 30 mins Total Time Includes: Examination of the Patient, Discharge Planning and Medication Reconciliation Discharge Plan Discharge Items Patient Disposition: Home - Self-Care Reason For Visit: LLE CELLULITIS Discharge Diagnosis: LEFT LOWER EXTREMITY CELLULITIS TYPE 2 DIABETES Condition on Discharge: Good Activity: Resume your previous activity Non-emergency contact: Primary Care Provider Call non-emergency contact if: you have any medication questions Follow-up/Referrals: Eugene Iverson MD [Primary Care Provider] - 09/10/20 10:00 am (Date & Time 09/10/2020 10:00 AM Provider Eugene Iverson MD Department Family Practice [facility] ) Diet: Carb Consistent or DM2 and Heart Healthy Ambulatory Orders: Basic Metabolic Panel (Routine) Timeframe: 1 Week Location: Determined by Patient Ordered By: Delores Donohue Attending Provider Instructions: PLEASE HAVE REFERRAL TO PODIATRY FOR DIABETIC FEET CARE continue Bactrim 1 tablet twice daily for 3 weeks takes Probiotic ( over the counter ) while taking antibiotic please notify your family physician with worsening of left leg swelling , pain , redness use renan stocking , keep leg elevated while sitting or sleeping to prevent ankle swelling Lab work : Basic metabolic panel in a week Pending Studies at Discharge: No Stand-Alone Forms: [employer], Smoking Cessation Medications and DC Order Prescriptions: New sulfamethoxazole-trimethoprim 800-160 mg tablet 1 tab PO BID 21 Days Qty: 42 RF: 0 Continued labetalol 200 mg tablet 200 mg PO BID RF: 0 hydrocodone-acetaminophen 10-325 mg Tablet 1 tab PO TID PRN (Reason: Pain) RF: 0 methocarbamol [Robaxin-750] 750 mg Tablet 750 mg PO BID PRN (Reason: Muscle Spasm) RF: 0 pravastatin 10 mg Tablet 10 mg PO HS RF: 0 amlodipine 10 mg Tablet 10 mg PO HS RF: 0 warfarin 5 mg Tablet 7.5 mg PO SUTUTHSA RF: 0 warfarin 5 mg Tablet 5 mg PO MOWEFR RF: 0 multivitamin with minerals Tablet 1 tab PO HS RF: 0 lisinopril 40 mg Tablet 40 mg PO QAM RF: 0 potassium chloride 20 mEq Tablet Extended Release 20 meq PO HS RF: 0 Jardiance 25 mg Tablet 25 mg PO QAM RF: 0 albuterol sulfate 90 mcg/actuation HFA aerosol inhaler 2 puff Inhalation Q6H PRN (Reason: sob/wheezing) RF: 0 glyburide 5 mg Tablet 2.5 mg PO QAM RF: 0 vitamin B complex Capsule 1 cap PO HS RF: 0 ondansetron HCl [Zofran] 4 mg Tablet 4 mg PO TID PRN (Reason: Nausea) RF: 0 furosemide 40 mg tablet 40 mg PO QAM RF: 0 glyburide 5 mg tablet 5 mg PO HS RF: 0 elderberry fruit 200 mg Capsule 200 mg PO DAILY RF: 0 Discontinued doxycycline hyclate 100 mg capsule 100 mg PO BID RF: 0 Discharge Orders: Discharge Order (Routine); Ordered 09/07/20 Ordered By: Delores Briceño Admission Data Admit Date/Time: 09/01/20 19:09 Attending Provider: Delores Briceño Admit Provider: Dano Hatfield Primary Care Provider: Eugene Iverson Other Providers: Dano Hatfield ; Fadi Dorman ; Pedro Mcgill ; Yobany Shane I. ; Rodger Posadas II ; Olga Sutherland ; Jimenez Sesay Other Interventions: Discharge Summary Assessment (RN) Last Done: 09/07/20 11:56
[2020-09-08] MEDS ORDERED: VANCOMYCIN TROUGH ONE (08:30)
== END 2020-09-07 13:43 | disposition home or self-care (01) | DRG 603 ==
LOC: 3W 13:07 → ED 13:07 → SUATTDRO 17:06 → 3W 18:26